=== PATIENT | male | born 1950 | race Caucasian/White ===

== ENCOUNTER 2017-08-25 02:32 | Observation (INO) | payer BC ==
[2017-08-25 02:51] VITALS: RESP 18
[2017-08-25] MEDS ORDERED: SODIUM CHLORIDE 0.9% 1,000 ML IV STA (03:09)
[2017-08-25] MEDS ORDERED: ONDANSETRON 4 MG/2 ML VIAL IVP STA (03:09)
[2017-08-25] MEDS ORDERED: MORPHINE SULFATE 4 MG/ML SYRINGE IV STA (03:10)
[2017-08-25 03:47] LABS: Basophils # (A) 0.1 k/uL (0-0.2); Basophils % (A) 0 %; CH 29.5; CHCM 32.5; Eosinophils # (A) 0.3 k/uL (0-0.7); Eosinophils % (A) 2 %; HCT 41.9 % (39.0-53.0); HDW 2.48; HGB 13.8 gm/dL (13.0-17.5); Luc # (Auto) 0.16; Luc % (Auto) 1; Lymphocytes # (A) 1.1 k/uL (1.0-4.8); Lymphocytes % (A) 6 %; Monocytes # (A) 0.9 k/uL (0-1.0); Monocytes % (A) 5 %; Neutrophils # (A) 15.1 k/uL (1.3-7.7); Neutrophils % (A) 86 %; RBC 4.61 m/uL (4.30-5.90); RDW 12.4 % (11.5-15.5); WBC 17.6 k/uL (3.8-10.6); WBC (Perox) 18.22
--- NOTE | 2017-08-25 03:53 | ED ---
General Adult HPI - General Source: patient, RN notes reviewed Mode of arrival: ambulatory Limitations: no limitations <Juanjose Roldan - Last Filed: 08/25/17 03:54> <Mike Noble - Last Filed: 08/25/17 06:31> - General Chief complaint: Headache Stated complaint: Headache *2 days Time Seen by Provider: 08/25/17 03:01 - History of Present Illness Initial comments: Patient is a 67-year-old male who presents emergency room today with chief complaint of a headache with neck pain. He states the symptoms started 2 days ago he woke up Wednesday morning. Patient admits that he's been trying some pain medication of Tylenol also muscle relaxant with little relief of the symptoms. Patient currently rates pain 06/07. States symptoms do bite him when he was diagnosed with a stroke approximately a year ago was. He states that he did see a neurologist down. Patient denies any other complaints or symptoms. Patient denies any recent fever, chills, shortness of breath, chest pain, back pain, abdominal pain, nausea or vomiting, numbness or tingling, dysuria or hematuria, constipation or diarrhea, headaches or visual changes, or any other complaints. (Juanjose Roldan) - Related Data Home Medications Medication Instructions Recorded Confirmed Aspirin 81 mg PO DAILY 09/27/14 01/02/16 Fenofibrate Nanocrystallized 145 mg PO DAILY 09/27/14 01/02/16 [Tricor] Pantoprazole Sodium [Protonix] 40 mg PO DAILY 09/27/14 01/02/16 Quinapril HCl [Accupril] 10 mg PO DAILY 09/27/14 01/02/16 glipiZIDE [Glucotrol] 10 mg PO TID 09/27/14 01/02/16 metFORMIN HCL 1,000 mg PO BID 09/27/14 01/02/16 Oseltamivir Phosphate [Tamiflu] 30 mg PO BID 01/02/16 01/02/16 Allergies Allergy/AdvReac Type Severity Reaction Status Date / Time Penicillins AdvReac Itching Verified 08/25/17 02:51 lobster AdvReac Itching Uncoded 08/25/17 02:51 Review of Systems ROS Other: All systems not noted in ROS Statement are negative. <Juanjose Roldan - Last Filed: 08/25/17 03:54> ROS Other: All systems not noted in ROS Statement are negative. <Mike Noble - Last Filed: 08/25/17 06:31> ROS Statement: Those systems with pertinent positive or pertinent negative responses have been documented in the HPI. Past Medical History Past Medical History: CVA/TIA, Diabetes Mellitus, GERD/Reflux, Hyperlipidemia, Hypertension Additional Past Medical History / Comment(s): arthritis, frequent urination History of Any Multi-Drug Resistant Organisms: None Reported Past Surgical History: Orthopedic Surgery, Tonsillectomy Additional Past Surgical History / Comment(s): lori shoulder surgeries, left knee arthroscopy, LEFT SHOULDER ARTHOSCOPY Past Anesthesia/Blood Transfusion Reactions: No Reported Reaction Past Psychological History: No Psychological Hx Reported Smoking Status: Never smoker Past Alcohol Use History: Occasional Past Drug Use History: None Reported <Juanjose Roldan - Last Filed: 08/25/17 03:54> General Exam Limitations: no limitations <Juanjose Roldan - Last Filed: 08/25/17 03:54> <Mike Noble - Last Filed: 08/25/17 06:31> - General Exam Comments Initial Comments: General: The patient is awake and alert, in no distress, and does not appear acutely ill. Eye: Pupils are equal, round and reactive to light, extra-ocular movements are intact. No nystagmus. There is normal conjunctiva bilaterally. No signs of icterus. Ears, nose, mouth and throat: There are moist mucous membranes and no oral lesions. Neck: The neck is supple, there is no tenderness or JVD. Cardiovascular: There is a regular rate and rhythm. No murmur, rub or gallop is appreciated. Respiratory: Lungs are clear to auscultation, respirations are non-labored, breath sounds are equal. No wheezes, stridor, rales, or rhonchi. Gastrointestinal: Soft, non-distended, non-tender abdomen without masses or organomegaly noted. There is no rebound or guarding present. No CVA tenderness. Bowel sounds are unremarkable. Musculoskeletal: Normal ROM, no tenderness. Strength 5/5. Sensation intact. Pulses equal bilaterally 2+. Neurological: A&O x 3. CN II-XII intact, There are no obvious motor or sensory deficits. Coordination appears grossly intact. Speech is normal. Normal finger to nose testing. Normal rapid alternating movements. Strength is/5 bilaterally both upper and lower extremities. Normal gait. Negative Romberg's. Skin: Skin is warm and dry and no rashes or lesions are noted. Psychiatric: Cooperative, appropriate mood & affect, normal judgment. (Juanjose Roldan) EKG Findings - EKG Comments: EKG Findings:: EKG performed at 0333: A 12-lead EKG was performed and interpreted by me as showing the following: Rate is 76, and rhythm is normal sinus. There are normal QRS complexes and normal R-wave progression. ST segments have no elevation or depression, and [place] segments appear normal. <Juanjose Roldan - Last Filed: 08/25/17 03:54> Medical Decision Making - Lab Data Result diagrams: 08/25/17 03:26 <Juanjose Roldan - Last Filed: 08/25/17 03:54> - Lab Data Result diagrams: 08/25/17 03:26 08/25/17 03:26 <Mike Noble - Last Filed: 08/25/17 06:31> - Medical Decision Making Patient's CAT scan of the brain shows old infarcts but no acute abnormalities. I went back and reexamined the patient he complained of a 7 out of 10 headache and some neck stiffness. (Mike Noble) - Lab Data Lab Results 08/25/17 08/25/17 08/25/17 Range/Units 03:26 03:26 03:26 WBC 17.6 H (3.8-10.6) k/uL RBC 4.61 (4.30-5.90) m/uL Hgb 13.8 (13.0-17.5) gm/dL Hct 41.9 (39.0-53.0) % MCV 91.0 (80.0-100.0) fL MCH 30.0 (25.0-35.0) pg MCHC 33.0 (31.0-37.0) g/dL RDW 12.4 (11.5-15.5) % Plt Count 280 (150-450) k/uL Neutrophils % 86 % Lymphocytes % 6 % Monocytes % 5 % Eosinophils % 2 % Basophils % 0 % Neutrophils # 15.1 H (1.3-7.7) k/uL Lymphocytes # 1.1 (1.0-4.8) k/uL Monocytes # 0.9 (0-1.0) k/uL Eosinophils # 0.3 (0-0.7) k/uL Basophils # 0.1 (0-0.2) k/uL PT (9.0-12.0) sec INR (<1.2) APTT (22.0-30.0) sec Sodium 138 (137-145) mmol/L Potassium 4.4 (3.5-5.1) mmol/L Chloride 104 (98-107) mmol/L Carbon Dioxide 24 (22-30) mmol/L Anion Gap 10 mmol/L BUN 14 (9-20) mg/dL Creatinine 0.80 (0.66-1.25) mg/dL Est GFR (MDRD) Af Amer >60 (>60 ml/min/1.73 sqM) Est GFR (MDRD) Non-Af >60 (>60 ml/min/1.73 sqM) Glucose 123 H (74-99) mg/dL Calcium 9.6 (8.4-10.2) mg/dL Total Bilirubin 0.8 (0.2-1.3) mg/dL AST 11 L (17-59) U/L ALT 34 (21-72) U/L Alkaline Phosphatase 85 (38-126) U/L Total Creatine Kinase 39 L (55-170) U/L CK-MB (CK-2) 1.3 (0.0-2.4) ng/mL CK-MB (CK-2) Rel Index 3.3 Troponin I <0.012 (0.000-0.034) ng/mL Total Protein 6.5 (6.3-8.2) g/dL Albumin 3.7 (3.5-5.0) g/dL 08/25/17 Range/Units 03:26 WBC (3.8-10.6) k/uL RBC (4.30-5.90) m/uL Hgb (13.0-17.5) gm/dL Hct (39.0-53.0) % MCV (80.0-100.0) fL MCH (25.0-35.0) pg MCHC (31.0-37.0) g/dL RDW (11.5-15.5) % Plt Count (150-450) k/uL Neutrophils % % Lymphocytes % % Monocytes % % Eosinophils % % Basophils % % Neutrophils # (1.3-7.7) k/uL Lymphocytes # (1.0-4.8) k/uL Monocytes # (0-1.0) k/uL Eosinophils # (0-0.7) k/uL Basophils # (0-0.2) k/uL PT 10.3 (9.0-12.0) sec INR 1.0 (<1.2) APTT 25.3 (22.0-30.0) sec Sodium (137-145) mmol/L Potassium (3.5-5.1) mmol/L Chloride (98-107) mmol/L Carbon Dioxide (22-30) mmol/L Anion Gap mmol/L BUN (9-20) mg/dL Creatinine (0.66-1.25) mg/dL Est GFR (MDRD) Af Amer (>60 ml/min/1.73 sqM) Est GFR (MDRD) Non-Af (>60 ml/min/1.73 sqM) Glucose (74-99) mg/dL Calcium (8.4-10.2) mg/dL Total Bilirubin (0.2-1.3) mg/dL AST (17-59) U/L ALT (21-72) U/L Alkaline Phosphatase (38-126) U/L Total Creatine Kinase (55-170) U/L CK-MB (CK-2) (0.0-2.4) ng/mL CK-MB (CK-2) Rel Index Troponin I (0.000-0.034) ng/mL Total Protein (6.3-8.2) g/dL Albumin (3.5-5.0) g/dL Disposition <Juanjose Roldan - Last Filed: 08/25/17 03:54> Time of Disposition: 06:31 <Mike Noble - Last Filed: 08/25/17 06:31> Clinical Impression: Headache Disposition: ADMITTED IP TO THIS HOSP Referrals: Ortiz Quiles DO [Primary Care Provider] - 1-2 days
[2017-08-25 03:56] LABS: Partial Thromboplastin Time 25.3 sec (22.0-30.0); Prothrombin Time 10.3 sec (9.0-12.0)
[2017-08-25 04:02] LABS: ALT 34 U/L (21-72); AST 11 U/L (17-59); Alkaline Phosphatase 85 U/L (38-126); Anion Gap 10 mmol/L; Blood Urea Nitrogen 14 mg/dL (9-20); Calcium 9.6 mg/dL (8.4-10.2); Carbon Dioxide 24 mmol/L (22-30); Chloride 104 mmol/L (98-107); Glucose 123 mg/dL (74-99); Non-African American GFR(MDRD) >60 (>60 ml/min/1.73 sqM); Potassium 4.4 mmol/L (3.5-5.1); Sodium 138 mmol/L (137-145); Total Bilirubin 0.8 mg/dL (0.2-1.3); Total Protein 6.5 g/dL (6.3-8.2)
[2017-08-25 04:09] LABS: Creatine Kinase 39 U/L (55-170)
[2017-08-25 04:22] LABS: Creatine Kinase MB 1.3 ng/mL (0.0-2.4); Troponin I <0.012 ng/mL (0.000-0.034)
--- NOTE | 2017-08-25 04:39 | XR ---
EXAM: XR Chest, 2 Views CLINICAL HISTORY: Reason: altered mental status TECHNIQUE: Frontal and lateral views of the chest. COMPARISON: No relevant prior studies available. FINDINGS: Lungs: No focal infiltrate or evidence of CHF. Pleural space: Unremarkable. No effusion or pneumothorax. Heart: Unremarkable. No cardiomegaly. Mediastinum: Unremarkable. Bones/joints: Degenerative changes without acute osseous abnormality. There is mild widening of both acromioclavicular joints which may be on an arthritic, metabolic or posttraumatic basis. Smoothly marginated contour deformity of several anterior left mid and lower ribs suggests old healed fracture deformities. IMPRESSION: 1. No acute process is seen within the chest. 2. Chronic appearing osseous findings, as above.
--- NOTE | 2017-08-25 04:50 | CT ---
EXAM: CT Head Without Intravenous Contrast CLINICAL HISTORY: Reason: headache, altered mental status TECHNIQUE: Axial computed tomography images of the head/brain without intravenous contrast. CTDI is 57.40 mGy and DLP is 1064.30 mGy-cm. This CT exam was performed using one or more of the following dose reduction techniques: automated exposure control, adjustment of the mA and/or kV according to patient size, and/or use of iterative reconstruction technique. COMPARISON: No relevant prior studies available. FINDINGS: Brain: Broad region of encephalomalacia consistent with remote left cerebellar infarct, along with prominent chronic lacunar infarct involving the right basal ganglia, internal capsule and caudate, and smaller chronic left basal ganglia lacunar infarct. Additional confluent hypodensity in the right frontal lobe, extending from the centrum semiovale ovale to the subcortical level, suggestive of postinfarct sequela which is more likely chronic than subacute given slight ex vacuo dilatation of the right lateral ventricle as seen on the coronal reformats. There is a background of mild atrophy and diffuse periventricular white matter hypodensity most likely on a chronic small vessel ischemic basis. There is no acute bleed, midline shift or mass effect. Ventricles: No hydrocephalus. Bones/joints: No acute fracture. Soft tissues: Unremarkable. Vasculature: Intracranial atherosclerosis. Sinuses: Minor paranasal sinus mucosal thickening without air-fluid level. Mastoid air cells: Unremarkable. No mastoid effusion. IMPRESSION: 1. Sequela from multiple sites of nonacute infarct, most if not all of which are clearly chronic, as discussed above. 2. No identifiable acute or recent territorial infarct, which may initially be inapparent by CT and for which MRI is considered more sensitive, nor specific etiology of the patient's headaches detected. 3. No priors.
[2017-08-25] MEDS ORDERED: DIAZEPAM 5 MG/ML 2 ML INJ IVP STA (05:16)
[2017-08-25] MEDS ORDERED: SODIUM CHLORIDE 0.9% 1,000 ML IV ONE (06:31)
[2017-08-25] MEDS ORDERED: HYDROmorphone 1 MG/ML 1 ML SYRINGE IVP STA (11:19)
[2017-08-25] MEDS ORDERED: ONDANSETRON 4 MG/2 ML VIAL IVP PRN (11:19)
[2017-08-25 12:12] LABS: Glucose,Whole Blood 205 mg/dL (75-99)
[2017-08-25] MEDS: traMADol 50 MG TAB PO SCH ×3 (14:44→21:51)
[2017-08-25 17:06] LABS: Glucose,Whole Blood 200 mg/dL (75-99)
[2017-08-25] MEDS: amLODIPine 5 MG TAB PO SCH (18:15)
[2017-08-25] MEDS: PANTOPRAZOLE 40 MG TABLET PO SCH (18:17)
[2017-08-25] MEDS: INSULIN LISPRO (humaLOG) 300 UNIT/3 ML VIAL SQ SCH ×2 (18:17→21:49)
[2017-08-25] MEDS: LISINOPRIL 10 MG TAB PO SCH (18:17)
[2017-08-25] MEDS: ASPIRIN 81 MG PO SCH (18:17)
[2017-08-25] MEDS ORDERED: CYCLOBENZAPRINE 5 MG TAB PO PRN (20:09)
[2017-08-25] MEDS ORDERED: DIAZEPAM 2 MG TAB PO STA (20:09)
--- NOTE | 2017-08-25 20:13 | P.HPIM ---
History of Present Illness H&P Date: 08/25/17 Chief Complaint: Neck pain, headache This is a 67-year-old gentleman patient of Dr. Quiles. 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 Patient had taken some Tylenol [id number] with a muscle relaxant with no relief of symptoms. Patient's pain is aggravated by neck movement, it's also admitted by driving, no diplopia no nausea, no fever no chills, no delirium, no motor deficits or sensory deficits in upper or lower extremities. Pain is rated at 7 out of 10, no similar symptoms in the past related to this. He had headaches in the past for which it has resolved and headache was thought to be related to his CVA, In the emergency room he was evaluated to include an MRI of the brain which shows the left inferior cerebellar infarct, computed tomography scan of the brain shows old infarcts without any acute abnormalities, leukocytosis noted 17.6 WBC with 15.1 neutrophils no urinalysis was performed creatinine 0.80 INR, normal liver function test him a no LP performed Review of Systems Constitutional: Reports as per HPI, Denies anorexia, Denies chills, Denies chronic headaches, Denies chronic pain, Denies daytime sleepiness, Denies fatigue, Denies fever, Denies lethargy, Denies malaise, Denies night sweats, Denies poor appetite, Denies sweats, Denies weakness, Denies weight gain, Denies weight loss Ears, nose, mouth and throat: Reports as per HPI, Reports ant. neck pain, Reports headache, Reports neck fullness/pressure, Denies bleeding gums, Denies dental pain, Denies dysphagia, Denies epistaxis, Denies hoarseness, Denies mouth pain, Denies nasal congestion, Denies nasal discharge, Denies neck lump, Denies nose pain, Denies odynophagia, Denies post-nasal drip, Denies sinus pain , Denies sinus pressure, Denies swelling in mouth, Denies swelling in throat, Denies sore throat, Denies vertigo, Denies voice changes Cardiovascular: Reports as per HPI, Denies chest pain, Denies claudication, Denies decreased exercise tolerance, Denies dyspnea on exertion, Denies edema, Denies high blood pressure, Denies irregular heart beat, Denies leg edema, Denies lightheadedness, Denies orthopnea, Denies palpitations, Denies paroxysmal nocturnal dyspnea, Denies phlebitis, Denies rapid heart beat, Denies shortness of breath, Denies syncope Respiratory: Reports as per HPI, Denies congestion, Denies cough, Denies cough with sputum, Denies dyspnea, Denies excessive sputum, Denies hemoptysis, Denies home oxygen, Denies pain, Denies pain on inspiration, Denies pleurisy, Denies respiratory infections, Denies sleep apnea, Denies snoring, Denies wheezing Gastrointestinal: Reports as per HPI Genitourinary: Reports as per HPI, Denies decreased libido, Denies difficulties fathering child, Denies discharge, Denies dysuria, Denies erectile dysfunction, Denies flank pain, Denies genital pain, Denies genital sores, Denies hematuria, Denies impotence, Denies incontinence, Denies kidney stones, Denies nocturia, Denies polyuria, Denies testicular lump, Denies testicular pain, Denies urinary frequency, Denies urinary hesitancy, Denies urinary retention Musculoskeletal: Reports as per HPI, Denies arm numbness/tingling, Denies atrophy, Denies fractures, Denies frequent falls, Denies gait dysfunction, Denies hot joints, Denies leg numbness/tingling, Denies limitation of motion, Denies loss of height, Denies low back pain, Denies morning stiffness, Denies muscle cramps, Denies muscle weakness, Denies myalgias, Denies neck pain, Denies neck stiffness, Denies prior amputations, Denies redness of joints, Denies shooting arm pain, Denies shooting leg pain Integumentary: Reports as per HPI, Denies acne, Denies boils, Denies brittle nails, Denies change in hair/nails, Denies color changes, Denies darkening of skin, Denies depigmentation, Denies dryness, Denies foot/leg ulcers, Denies growths, Denies hirsutism, Denies lesions, Denies onychomycosis, Denies pruritus , Denies rash, Denies sores, Denies striae, Denies unusual bruising, Denies wounds Neurological: Reports as per HPI, Denies aphasia, Denies ataxia, Denies balance difficulties, Denies burning pain, Denies change in mentation, Denies change in smell/taste, Denies change in speech, Denies confusion, Denies convulsions, Denies double vision, Denies gait dysfunction, Denies head injury, Denies headaches, Denies hearing difficulties, Denies lack of coordination, Denies loss of vision, Denies memory loss, Denies migraines, Denies motor disturbance, Denies numbness, Denies paralysis, Denies paresthesias, Denies seizures, Denies sensory deficit, Denies spasticity, Denies syncope, Denies tic, Denies tingling , Denies transient paralysis, Denies tremors, Denies vertigo, Denies weakness, Denies visual changes Psychiatric: Reports as per HPI, Denies anhedonia, Denies anxiety, Denies anxiety attacks, Denies change in appetite, Denies change in libido, Denies change in sleep habits, Denies confusion, Denies depression, Denies difficulty concentrating, Denies disorientation, Denies hallucinations, Denies hopelessness , Denies hypersomnia, Denies insomnia, Denies irritability, Denies memory loss, Denies mood swings, Denies paranoia, Denies sadness/tearfulness, Denies sleep disturbances, Denies suicidal ideation Endocrine: Reports as per HPI, Denies cold intolerance, Denies deepening of the voice, Denies excessive sweating, Denies excessive thirst, Denies fatigue, Denies flushing, Denies heat intolerance, Denies high blood sugars, Denies increase in ring/shoe/hat size, Denies low blood sugars, Denies nocturia, Denies palpitations, Denies polydipsia, Denies polyphagia, Denies polyuria, Denies proptosis, Denies recent glucocorticoid use, Denies thyroid mass, Denies weight change Hematologic/Lymphatic: Reports as per HPI, Denies easy bleeding, Denies easy bruising, Denies lymphadenopathy, Denies lymphedema, Denies thrombophilia Allergic/Immunologic: Reports as per HPI, Denies allergic rhinitis, Denies anaphylaxis, Denies angioedema, Denies gluten intolerance, Denies persistent infections, Denies seasonal allergies, Denies urticaria, Denies wheezing Past Medical History Past Medical History: CVA/TIA, Diabetes Mellitus, GERD/Reflux, Hyperlipidemia, Hypertension, Osteoarthritis (OA) Additional Past Medical History / Comment(s): CVA almost 2 yrs ago with no residual, post CVA pt had daily mild headaches/neck stiffness but eventually became less frequent, NIDDM type II, arthritis especially in bilateral hands, starting of cataracts, frequent urination. History of Any Multi-Drug Resistant Organisms: None Reported Past Surgical History: Orthopedic Surgery, Tonsillectomy Additional Past Surgical History / Comment(s): lori shoulder rotator cuff surgeries with L side done twice, left knee arthroscopy, colonoscopy-normal. Past Anesthesia/Blood Transfusion Reactions: No Reported Reaction Smoking Status: Former smoker - Past Family History Mother Family Medical History: Neurologic Disorder (Brain tumor) Additional Family Medical History / Comment(s): Mother was healthy. She at the age of 84 yrs. Father Family Medical History: CVA/TIA Additional Family Medical History / Comment(s): Father is 89yrs old. Brother(s) Family Medical History: CVA/TIA Sister(s) Family Medical History: Osteoarthritis (OA) Son(s) Family Medical History: No Reported History Medications and Allergies Home Medications Medication Instructions Recorded Confirmed Type Aspirin 81 mg PO PC-SUPPER 09/27/14 08/25/17 History Pantoprazole Sodium [Protonix] 40 mg PO PC-SUPPER 09/27/14 08/25/17 History Quinapril HCl [Accupril] 10 mg PO PC-SUPPER 09/27/14 08/25/17 History glipiZIDE [Glucotrol] 10 mg PO TID 09/27/14 08/25/17 History metFORMIN HCL 1,000 mg PO BID 09/27/14 08/25/17 History Atorvastatin Calcium [Lipitor] 40 mg PO HS 08/25/17 08/25/17 History amLODIPine [Norvasc] 5 mg PO DAILY 08/25/17 08/25/17 History sitaGLIPtin [Januvia] 100 mg PO DAILY 08/25/17 08/25/17 History Allergies Allergy/AdvReac Type Severity Reaction Status Date / Time Penicillins AdvReac Itching Verified 08/25/17 06:52 shellfish derived [Shellfish] AdvReac Itching Verified 08/25/17 06:52 Physical Exam Vitals: Vital Signs Temp Pulse Pulse Resp BP BP Pulse Ox 08/25/17 19:38 99.9 F H 89 18 145/64 98 08/25/17 16:00 86 18 08/25/17 15:35 98.8 F 86 18 154/74 94 L 08/25/17 12:00 98.2 F 86 18 157/71 94 L 08/25/17 10:54 98.2 F 73 18 163/84 08/25/17 08:06 98.2 F 73 18 163/84 100 08/25/17 06:51 98.2 F 78 18 155/77 99 08/25/17 05:29 76 18 134/63 96 08/25/17 05:15 79 18 134/63 94 L 08/25/17 04:17 77 18 150/67 99 08/25/17 02:49 98 F 84 18 162/73 98 Intake and Output 08/25/17 08/25/17 08/25/17 06:59 14:59 22:59 Intake Total 240 600 720 Balance 240 600 720 Intake: Oral 240 600 720 Other: Voiding Method Toilet Toilet # Voids 1 1 2 Weight 77.111 kg 77.111 kg Patient Weight 08/26/17 06:59 Weight 77.111 kg - Constitutional General appearance: average body habitus, cooperative, no acute distress - EENT Eyes: anicteric sclerae, PERRLA, normal appearance ENT: no hard of hearing, no hearing grossly normal, NA/AT, normal oropharynx, no other, no pharyngeal erythema, no thrush, no tonsillar exudates, no tonsillar swelling - Neck Neck: no lymphadenopathy, normal ROM, no other, no rigidity, no stridor, no thyromegaly Thyroid: bilateral: normal size - Respiratory Respiratory: bilateral: CTA, negative: diminished, dullness, rales, wheezing - Cardiovascular Rhythm: regular Heart sounds: normal: S1, S2 Abnormal Heart Sounds: no systolic murmur, no diastolic murmur, no rub, no S3 Gallop, no S4 Gallop, no click, no other - Gastrointestinal General gastrointestinal: normal bowel sounds, soft - Integumentary Integumentary: decreased turgor, normal - Neurologic Neurologic: CNII-XII intact (Negative for Kernig's or Brudzinski's sign, neck is supple, occipital tenderness noted bilaterally) - Musculoskeletal Musculoskeletal: gait normal, strength equal bilaterally - Psychiatric Psychiatric: A&O x's 3, intact judgment & insight Results CBC & Chem 7: 08/25/17 03:26 08/25/17 03:26 Labs: Abnormal Lab Results - Last 24 Hours (Table) 08/25/17 08/25/17 08/25/17 Range/Units 03:26 03:26 03:26 WBC 17.6 H (3.8-10.6) k/uL Neutrophils # 15.1 H (1.3-7.7) k/uL Glucose 123 H (74-99) mg/dL POC Glucose (mg/dL) (75-99) mg/dL AST 11 L (17-59) U/L Total Creatine Kinase 39 L (55-170) U/L 08/25/17 08/25/17 Range/Units 12:05 16:58 WBC (3.8-10.6) k/uL Neutrophils # (1.3-7.7) k/uL Glucose (74-99) mg/dL POC Glucose (mg/dL) 205 H 200 H (75-99) mg/dL AST (17-59) U/L Total Creatine Kinase (55-170) U/L Laboratory Results WBC 17.6 k/uL (3.8-10.6) H 08/25/17 03:26 RBC 4.61 m/uL (4.30-5.90) 08/25/17 03:26 Hgb 13.8 gm/dL (13.0-17.5) 08/25/17 03:26 Hct 41.9 % (39.0-53.0) 08/25/17 03:26 MCV 91.0 fL (80.0-100.0) 08/25/17 03:26 MCH 30.0 pg (25.0-35.0) 08/25/17 03:26 MCHC 33.0 g/dL (31.0-37.0) 08/25/17 03:26 RDW 12.4 % (11.5-15.5) 08/25/17 03:26 Plt Count 280 k/uL (150-450) 08/25/17 03:26 Neutrophils % 86 % 08/25/17 03:26 Lymphocytes % 6 % 08/25/17 03:26 Monocytes % 5 % 08/25/17 03:26 Eosinophils % 2 % 08/25/17 03:26 Basophils % 0 % 08/25/17 03:26 Neutrophils # 15.1 k/uL (1.3-7.7) H 08/25/17 03:26 Lymphocytes # 1.1 k/uL (1.0-4.8) 08/25/17 03:26 Monocytes # 0.9 k/uL (0-1.0) 08/25/17 03:26 Eosinophils # 0.3 k/uL (0-0.7) 08/25/17 03:26 Basophils # 0.1 k/uL (0-0.2) 08/25/17 03:26 PT 10.3 sec (9.0-12.0) 08/25/17 03:26 INR 1.0 (<1.2) 08/25/17 03:26 APTT 25.3 sec (22.0-30.0) 08/25/17 03:26 Sodium 138 mmol/L (137-145) 08/25/17 03:26 Potassium 4.4 mmol/L (3.5-5.1) 08/25/17 03:26 Chloride 104 mmol/L (98-107) 08/25/17 03:26 Carbon Dioxide 24 mmol/L (22-30) 08/25/17 03:26 Anion Gap 10 mmol/L 08/25/17 03:26 BUN 14 mg/dL (9-20) 08/25/17 03:26 Creatinine 0.80 mg/dL (0.66-1.25) 08/25/17 03:26 Est GFR (MDRD) Af Amer >60 (>60 ml/min/1.73 sqM) 08/25/17 03:26 Est GFR (MDRD) Non-Af >60 (>60 ml/min/1.73 sqM) 08/25/17 03:26 Glucose 123 mg/dL (74-99) H 08/25/17 03:26 POC Glucose (mg/dL) 200 mg/dL (75-99) H 08/25/17 16:58 POC Glu Cattle Manager ID Tori Harris 08/25/17 16:58 Calcium 9.6 mg/dL (8.4-10.2) 08/25/17 03:26 Total Bilirubin 0.8 mg/dL (0.2-1.3) 08/25/17 03:26 AST 11 U/L (17-59) L 08/25/17 03:26 ALT 34 U/L (21-72) 08/25/17 03:26 Alkaline Phosphatase 85 U/L (38-126) 08/25/17 03:26 Total Creatine Kinase 39 U/L (55-170) L 08/25/17 03:26 CK-MB (CK-2) 1.3 ng/mL (0.0-2.4) 08/25/17 03:26 CK-MB (CK-2) Rel Index 3.3 08/25/17 03:26 Troponin I <0.012 ng/mL (0.000-0.034) 08/25/17 03:26 Total Protein 6.5 g/dL (6.3-8.2) 08/25/17 03:26 Albumin 3.7 g/dL (3.5-5.0) 08/25/17 03:26 Thrombosis Risk Factor Assmnt - DVT/VTE Prophylaxis DVT/VTE Prophylaxis: Mechanical Prophylaxis ordered, Low risk, early ambulation encouraged - Choose All That Apply Any of the Below Risk Factors Present?: Yes Each Factor Represents 1 point: Obesity (BMI >25) Other Risk Factors: Yes Each Risk Factor Represents 2 Points: Age 61-74 years Other congenital or acquired thrombophilia - If yes, enter type in comment: No Thrombosis Risk Factor Assessment Total Risk Factor Score: 3 Thrombosis Risk Factor Assessment Level: Moderate Risk Assessment and Plan Plan: 1. Lower extremity but the headache with neck pain, highly suspicious off occipital neuralgia of rather than meningitis, patient's evaluation would include neurology consultation, patient might need occipital nerve block bilaterally, muscle relaxants would be given, Toradol 30 mg IV every 6 hours, Flexeril 5 mg 3 times a day, Valium 2 mg one time dose tonight. Dr. Calles is on consult, discussed the case with him, there is a small likelihood that an LP would be needed down the line secondary to leukocytosis however this is less likely, however should it be performed, viral cultures including HSV PCR, arbovirus, would need need to be sent along with bacterial cultures. Patient denies any history of recurrent meningitis the past 2. Leukocytosis, etiology is undetermined at this time, urinalysis will be obtained, 3. Diabetes mellitus type 2 on Januvia which we continued, metformin which is currently on hold secondary to contrast studies continue Glucotrol 4. 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 Hypertension currently on amlodipine 5 mg daily and Accupril 10 mg DO NOT RESUSCITATE no changes made 6. GI prophylaxis maintenance Protonix at home, next DVT prophylaxis on early ambulation and KLAUDIA hose Expected length of stay 24-48 hours, he currently is under observation status
[2017-08-25 20:51] LABS: Glucose,Whole Blood 228 mg/dL (75-99)
[2017-08-25 20:54] LABS: Hemoglobin A1C 8.3 % (4.2-6.1)
[2017-08-25] MEDS: methylPREDNISolone SOD SUCCI 125 MG/2 ML VIAL IVP SCH ×2 (21:48→23:47)
[2017-08-25] MEDS: ATORVASTATIN 40 MG TAB PO SCH (21:48)
[2017-08-25] MEDS: KETOROLAC 30 MG/ML 1 ML VIAL IVP SCH (21:49)
--- NOTE | 2017-08-25 21:59 | CONS ---
CONSULTATION DATE OF CONSULTATION: 08/25/2017. CHIEF COMPLAINT: Headache. HISTORY OF PRESENT ILLNESS: Mr. Morales is a pleasant 67-year-old male, who is being evaluated by the Neurology Service per the request of Dr. Higgins for a headache. The patient states that he started having a headache approximately 4 days ago. The headache was mostly in the occipital region bilaterally and he described it as a throbbing pain. Two days ago, he started having upper neck stiffness and discomfort. He denies having any fevers and denies any recent head injuries. He was brought into [facility] Emergency Room for further workup and management. A CT scan of the brain was done, which showed no acute intracranial abnormalities. There was evidence of multiple old lacunar infarcts. The patient states that he did suffer a stroke a few years ago and does take aspirin 81 mg daily at home. He denies any lateralizing numbness or weakness. He rates his headache as 6 out of 10 in intensity at the time of my evaluation. He denies any dizziness or visual changes. He denies any recent travels. His CBC on admission showed leukocytosis at 17.6, and his comprehensive metabolic profile and cardiac enzymes were negative. He has not had any fevers since his admission and denies having any fevers at home. PAST MEDICAL HISTORY: Stroke, diabetes, gastroesophageal reflux disease, dyslipidemia, hypertension, arthritis, history of tonsillectomy and orthopedic surgery involving the knees and the shoulders. SOCIAL HISTORY: He denies any tobacco or drug use. He occasionally drinks alcohol. FAMILY HISTORY: Noncontributory. HOME MEDICATIONS: Reviewed in the chart. ALLERGIES: PENICILLIN AND SHELLFISH. REVIEW OF SYSTEMS: CONSTITUTIONAL: Negative. EYES: Negative. ENT: Negative. CARDIOVASCULAR: Negative. RESPIRATORY: Negative. NEUROLOGICAL: As mentioned above. GASTROINTESTINAL: As mentioned above with history of occasional heartburn. GENITOURINARY: Positive for frequent urination. PSYCHIATRIC: Negative. ENDOCRINE: Positive for diabetes. DERMATOLOGICAL: Negative. PHYSICAL EXAM: Vital signs show a temperature of 98.8, pulse 86, respirations 18, blood pressure 154/74. GENERAL APPEARANCE: The patient is a well-developed, elderly male, who appears to be in no acute distress. HEENT: Normocephalic, atraumatic. No facial asymmetry is seen. Tenderness to palpation is felt along bilateral greater occipital nerve regions. NECK: Supple with no masses felt. Tenderness to palpation is felt along the upper cervical spine. CARDIOVASCULAR: Regular rate and rhythm. ABDOMEN: Nontender, nondistended. Extremities showed no edema or clubbing. NEUROLOGICAL: The patient is alert, aware and oriented x3. Speech and language are normal. Strength is full in all 4 extremities. Sensory exam was normal to light touch in all 4 extremities. No pronator drift is seen. Gait is normal. No tremors or seizure-like activity is seen. No facial asymmetry is noticed on cranial nerve testing. IMPRESSION: 1. Intractable headache. 2. Cervicalgia. 3. Bilateral occipital neuritis. 4. Leukocytosis. RECOMMENDATION: The patient continues to have bilateral occipital head pain and upper neck pain and this is consistent with occipital neuritis. His neck is pretty supple and I doubt any intracranial infection causing his headache or his leukocytosis. He has not had any fevers. I will try him on IV Solu-Medrol 125 mg every 8 hours. The patient will likely need greater occipital nerve blocks which can be done in the outpatient setting. I reviewed his CT scans of the brain which showed no acute findings. He is already on aspirin for his history of ischemic strokes. I do recommend repeating a CBC, preferably prior to the initiation of Solu-Medrol, as this can cause secondary leukocytosis. Continue the rest of your current workup and management. I will continue to follow with you. Further recommendations to follow. Thank you for allowing me to participate in the care of your patient. If you have any questions, please feel free to contact me. MAYELA / SAHRAN: [phone] /
[2017-08-26 03:45] LABS: Glucose,Whole Blood 213 mg/dL (75-99)
[2017-08-26] MEDS: KETOROLAC 30 MG/ML 1 ML VIAL IVP SCH ×4 (03:55→17:32)
[2017-08-26 06:59] LABS: Glucose,Whole Blood 272 mg/dL (75-99)
[2017-08-26 08:03] LABS: Basophils % (A) 0 %; CH 29.3; CHCM 31.6; Eosinophils % (A) 0 %; HCT 40.7 % (39.0-53.0); HDW 2.47; HGB 12.9 gm/dL (13.0-17.5); Luc # (Auto) 0.04; Luc % (Auto) 0; Lymphocytes # (A) 0.5 k/uL (1.0-4.8); Lymphocytes % (A) 3 %; MCH 29.6 pg (25.0-35.0); MCHC 31.8 g/dL (31.0-37.0); Mean Platelet Volume 8.5; Monocytes # (A) 0.2 k/uL (0-1.0); Monocytes % (A) 1 %; Neutrophils # (A) 17.6 k/uL (1.3-7.7); Neutrophils % (A) 95 %; RBC 4.38 m/uL (4.30-5.90); RDW 12.2 % (11.5-15.5); WBC 18.4 k/uL (3.8-10.6); WBC (Perox) 19.01
[2017-08-26] MEDS: methylPREDNISolone SOD SUCCI 125 MG/2 ML VIAL IVP SCH ×2 (08:06→17:28)
[2017-08-26] MEDS: traMADol 50 MG TAB PO SCH ×3 (08:07→22:18)
[2017-08-26] MEDS: INSULIN LISPRO (humaLOG) 300 UNIT/3 ML VIAL SQ SCH ×4 (08:11→20:21)
[2017-08-26 08:34] LABS: ALT 32 U/L (21-72); AST 16 U/L (17-59); Alkaline Phosphatase 87 U/L (38-126); Anion Gap 10 mmol/L; Blood Urea Nitrogen 24 mg/dL (9-20); Calcium 9.2 mg/dL (8.4-10.2); Carbon Dioxide 24 mmol/L (22-30); Chloride 103 mmol/L (98-107); Glucose 275 mg/dL (74-99); Non-African American GFR(MDRD) >60 (>60 ml/min/1.73 sqM); Potassium 5.1 mmol/L (3.5-5.1); Sodium 137 mmol/L (137-145); Total Bilirubin 0.4 mg/dL (0.2-1.3); Total Protein 6.1 g/dL (6.3-8.2)
[2017-08-26] MEDS: amLODIPine 5 MG TAB PO SCH (10:03)
[2017-08-26 11:57] LABS: Glucose,Whole Blood 320 mg/dL (75-99)
[2017-08-26 15:48] LABS: Appearance,Urine Clear (Clear); Bilirubin,Urine Negative (Negative); Glucose,Urine (UA) 4+ (Negative); Ketones,Urine Negative (Negative); Leukocyte Esterase,Urine Negative (Negative); Nitrite,Urine Negative (Negative); Protein,Urine Negative (Negative); Specific Gravity,Urine 1.029 (1.001-1.035); UA Billing (MACRO vs. MICRO) CHEM; Urobilinogen,Urine <2.0 mg/dL (<2.0)
[2017-08-26 17:03] LABS: Glucose,Whole Blood 347 mg/dL (75-99)
[2017-08-26] MEDS: glipiZIDE 10 MG TAB PO SCH (17:28)
[2017-08-26] MEDS: metFORMIN 500 MG TAB PO SCH (17:28)
--- NOTE | 2017-08-26 17:58 | P.PN ---
Subjective Principal diagnosis: Patient is a pleasant 67-year-old male who is being followed by the neurology service for headache. Patient states these been having a headache over the last few days. Patient states headache is mostly in the occipital region. Few days prior to admission he started having stiffness of his neck. He denies any fevers or recent head injuries. Computed tomography scan of the brain was done which showed no acute intracranial abnormality. There was evidence of old multiple lacunar infarcts. Patient does take 81 mg aspirin at home daily. Patient had no lateralizing numbness or weakness. Patient's neck was supple. Patient's been afebrile since admission. At the time of my evaluation, patient is resting comfortably in bed and appears to be in no acute distress. Objective - Vital Signs Vital signs: Vital Signs Temp 97.5 F L 08/26/17 15:46 Pulse 67 08/26/17 15:46 Resp 18 08/26/17 16:00 BP 155/72 08/26/17 15:46 Pulse Ox 97 08/26/17 15:46 Intake & Output 08/25/17 08/26/17 08/26/17 18:59 06:59 18:59 Intake Total 266 136 1313 Balance 884 944 7945 Weight 77.111 kg Intake: IV 140 0.9@20 140 Oral 073 [id number] [id number] Other: Voiding Method Toilet Toilet Toilet # Voids 2 2 - Exam PHYSICAL EXAM: GENERAL APPEARANCE: Patient is a well-developed, male who appears to be in no acute distress. HEENT: Normocephalic, atraumatic, no facial asymmetry is seen. Neck is supple with no masses felt. CARDIOVASCULAR: Regular rate and rhythm. ABDOMEN: Nontender, nondistended. EXTREMITIES: Show no edema or clubbing. NEUROLOGICAL EXAM: Patient is awake, alert, and oriented 3. Speech and language are normal. Strength is full in all 4 extremities. Sensory exam to light touch is normal in all 4 extremities. No facial asymmetry is seen on cranial nerve testing. No tremors or seizure-like activity is noted. - Labs CBC & Chem 7: 08/26/17 06:48 08/26/17 06:48 Labs: Abnormal Lab Results - Last 24 Hours (Table) 08/25/17 08/25/17 08/26/17 Range/Units 03:30 20:48 03:42 WBC (3.8-10.6) k/uL Hgb (13.0-17.5) gm/dL Neutrophils # (1.3-7.7) k/uL Lymphocytes # (1.0-4.8) k/uL BUN (9-20) mg/dL Glucose (74-99) mg/dL POC Glucose (mg/dL) 228 H 213 H (75-99) mg/dL Hemoglobin A1c 8.3 H (4.2-6.1) % AST (17-59) U/L Total Protein (6.3-8.2) g/dL Albumin (3.5-5.0) g/dL Urine Glucose (UA) (Negative) 08/26/17 08/26/17 08/26/17 Range/Units 06:48 06:48 06:56 WBC 18.4 H (3.8-10.6) k/uL Hgb 12.9 L (13.0-17.5) gm/dL Neutrophils # 17.6 H (1.3-7.7) k/uL Lymphocytes # 0.5 L (1.0-4.8) k/uL BUN 24 H (9-20) mg/dL Glucose 275 H (74-99) mg/dL POC Glucose (mg/dL) 272 H (75-99) mg/dL Hemoglobin A1c (4.2-6.1) % AST 16 L (17-59) U/L Total Protein 6.1 L (6.3-8.2) g/dL Albumin 3.3 L (3.5-5.0) g/dL Urine Glucose (UA) (Negative) 08/26/17 08/26/17 08/26/17 Range/Units 11:54 14:25 16:59 WBC (3.8-10.6) k/uL Hgb (13.0-17.5) gm/dL Neutrophils # (1.3-7.7) k/uL Lymphocytes # (1.0-4.8) k/uL BUN (9-20) mg/dL Glucose (74-99) mg/dL POC Glucose (mg/dL) 320 H 347 H (75-99) mg/dL Hemoglobin A1c (4.2-6.1) % AST (17-59) U/L Total Protein (6.3-8.2) g/dL Albumin (3.5-5.0) g/dL Urine Glucose (UA) 4+ H (Negative) Assessment and Plan Plan: Impression: 1. Intractable headache 2. Cervicalgia 3. Bilateral occipital neuritis 4. Leukocytosis Recommendation: It does appear patient has significant occipital neuritis on exam. He states his neck pain is slowly resolving. His neck remains supple. I don't any intracranial infection causing his headache or leukocytosis. He remains afebrile. Patient has been receiving IV Solu-Medrol every 8 hours which seems to be helping. After discharge, patient may need greater occipital nerve blocks which can be done in the office setting. As you recall computed tomography scan of the brain showed no acute findings. Patient is already on antiplatelet therapy for history of ischemic stroke. Patient is stable from a neurological standpoint for discharge. Continue current medical management. I will continue to follow with you. Further recommendations to follow. I performed an examination of the patient and discussed the management with the TRACK REPAIR SUPERVISOR. I have reviewed the TRACK REPAIR SUPERVISOR notes and agree with the findings and plan of care.
[2017-08-26] MEDS: ASPIRIN 81 MG PO SCH (18:42)
[2017-08-26] MEDS: PANTOPRAZOLE 40 MG TABLET PO SCH (18:42)
[2017-08-26] MEDS: LISINOPRIL 10 MG TAB PO SCH (18:43)
[2017-08-26] MEDS: ATORVASTATIN 40 MG TAB PO SCH (19:47)
[2017-08-26 20:00] LABS: Glucose,Whole Blood 291 mg/dL (75-99)
[2017-08-27] MEDS: methylPREDNISolone SOD SUCCI 125 MG/2 ML VIAL IVP SCH ×2 (00:08→08:07)
[2017-08-27] MEDS: traMADol 50 MG TAB PO SCH ×3 (00:11→12:39)
[2017-08-27] MEDS: KETOROLAC 30 MG/ML 1 ML VIAL IVP SCH ×3 (00:11→12:36)
[2017-08-27 06:57] LABS: Glucose,Whole Blood 317 mg/dL (75-99)
[2017-08-27 07:43] VITALS: BP 141/69; PULSE 75; TEMP 97.6
[2017-08-27] MEDS: metFORMIN 500 MG TAB PO SCH (08:05)
[2017-08-27] MEDS: glipiZIDE 10 MG TAB PO SCH ×2 (08:05→12:37)
[2017-08-27] MEDS: amLODIPine 5 MG TAB PO SCH (08:06)
[2017-08-27] MEDS: INSULIN LISPRO (humaLOG) 300 UNIT/3 ML VIAL SQ SCH ×2 (08:08→12:34)
[2017-08-27] MEDS ORDERED: LINAGLIPTIN 5 MG TABLET PO SCH (09:00)
[2017-08-27 11:54] LABS: Glucose,Whole Blood 373 mg/dL (75-99)
[2017-08-27] MEDS ORDERED: INSULIN LISPRO (humaLOG) 300 UNIT/3 ML VIAL SQ ONE (13:05)
--- NOTE | 2017-08-30 15:09 | P.PN ---
Subjective This is a 67-year-old gentleman patient of Dr. Quiles. 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 Patient had taken some Tylenol [id number] with a muscle relaxant with no relief of symptoms. Patient's pain is aggravated by neck movement, it's also admitted by driving, no diplopia no nausea, no fever no chills, no delirium, no motor deficits or sensory deficits in upper or lower extremities. Pain is rated at 7 out of 10, no similar symptoms in the past related to this. He had headaches in the past for which it has resolved and headache was thought to be related to his CVA, In the emergency room he was evaluated to include an MRI of the brain which shows the left inferior cerebellar infarct, computed tomography scan of the brain shows old infarcts without any acute abnormalities, leukocytosis noted 17.6 WBC with 15.1 neutrophils no urinalysis was performed creatinine 0.80 INR, normal liver function test him a no LP performed 08/26: Patient has been started on high dose Solu-Medrol and his diabetic medications were initially on hold which will be resumed and patient also started on sliding insulin scale. Patient has been seen by Dr. Calles for occipital neuritis. We will plan to monitor the patient overnight and probable discharge tomorrow. Objective - Vital Signs Vital signs: Vital Signs Temp 97.5 F L 08/26/17 08:00 Pulse 75 08/26/17 08:00 Resp 18 08/26/17 08:00 BP 123/67 08/26/17 08:00 Pulse Ox 96 08/26/17 08:00 Intake & Output 08/25/17 08/26/17 08/26/17 18:59 06:59 18:59 Intake Total 988 630 9346 Balance 690 839 8305 Weight 77.111 kg Intake: IV 140 0.9@20 140 Oral [phone] Other: Voiding Method Toilet Toilet Toilet # Voids 2 2 - Exam General appearance: average body habitus, cooperative, no acute distress - EENT Eyes: anicteric sclerae, PERRLA, normal appearance ENT: no hard of hearing, no hearing grossly normal, NA/AT, normal oropharynx, no other, no pharyngeal erythema, no thrush, no tonsillar exudates, no tonsillar swelling - Neck Neck: no lymphadenopathy, normal ROM, no other, no rigidity, no stridor, no thyromegaly Thyroid: bilateral: normal size - Respiratory Respiratory: bilateral: CTA, negative: diminished, dullness, rales, wheezing - Cardiovascular Rhythm: regular Heart sounds: normal: S1, S2 Abnormal Heart Sounds: no systolic murmur, no diastolic murmur, no rub, no S3 Gallop, no S4 Gallop, no click, no other - Gastrointestinal General gastrointestinal: normal bowel sounds, soft - Integumentary Integumentary: decreased turgor, normal - Neurologic Neurologic: CNII-XII intact (Negative for Kernig's or Brudzinski's sign, neck is supple, occipital tenderness noted bilaterally) - Musculoskeletal Musculoskeletal: gait normal, strength equal bilaterally - Psychiatric Psychiatric: A&O x's 3, intact judgment & insight - Labs CBC & Chem 7: 08/26/17 06:48 08/26/17 06:48 Labs: Abnormal Lab Results - Last 24 Hours (Table) 08/25/17 08/25/17 08/25/17 Range/Units 03:30 16:58 20:48 WBC (3.8-10.6) k/uL Hgb (13.0-17.5) gm/dL Neutrophils # (1.3-7.7) k/uL Lymphocytes # (1.0-4.8) k/uL BUN (9-20) mg/dL Glucose (74-99) mg/dL POC Glucose (mg/dL) 200 H 228 H (75-99) mg/dL Hemoglobin A1c 8.3 H (4.2-6.1) % AST (17-59) U/L Total Protein (6.3-8.2) g/dL Albumin (3.5-5.0) g/dL 08/26/17 08/26/17 08/26/17 Range/Units 03:42 06:48 06:48 WBC 18.4 H (3.8-10.6) k/uL Hgb 12.9 L (13.0-17.5) gm/dL Neutrophils # 17.6 H (1.3-7.7) k/uL Lymphocytes # 0.5 L (1.0-4.8) k/uL BUN 24 H (9-20) mg/dL Glucose 275 H (74-99) mg/dL POC Glucose (mg/dL) 213 H (75-99) mg/dL Hemoglobin A1c (4.2-6.1) % AST 16 L (17-59) U/L Total Protein 6.1 L (6.3-8.2) g/dL Albumin 3.3 L (3.5-5.0) g/dL 08/26/17 08/26/17 Range/Units 06:56 11:54 WBC (3.8-10.6) k/uL Hgb (13.0-17.5) gm/dL Neutrophils # (1.3-7.7) k/uL Lymphocytes # (1.0-4.8) k/uL BUN (9-20) mg/dL Glucose (74-99) mg/dL POC Glucose (mg/dL) 272 H 320 H (75-99) mg/dL Hemoglobin A1c (4.2-6.1) % AST (17-59) U/L Total Protein (6.3-8.2) g/dL Albumin (3.5-5.0) g/dL Assessment and Plan Plan: 1. Lower extremity but the headache with neck pain, highly suspicious off occipital neuralgia of rather than meningitis, patient's evaluation would include neurology consultation, patient might need occipital nerve block bilaterally, muscle relaxants would be given, Toradol 30 mg IV every 6 hours, Flexeril 5 mg 3 times a day, Valium 2 mg one time dose tonight. Dr. Calles is on consult, discussed the case with him, there is a small likelihood that an LP would be needed down the line secondary to leukocytosis however this is less likely, however should it be performed, viral cultures including HSV PCR, arbovirus, would need need to be sent along with bacterial cultures. Patient denies any history of recurrent meningitis the past. High-dose Solu-Medrol started 2. Leukocytosis, etiology is undetermined at this time, urinalysis will be obtained, 3. Diabetes mellitus type 2 - uncontrolled secondary to steroids on Januvia which we continued, metformin which is currently on hold secondary to contrast studies continue Glucotrol 4. 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 Hypertension currently on amlodipine 5 mg daily and Accupril 10 mg DO NOT RESUSCITATE no changes made 6. GI prophylaxis maintenance Protonix at home, next DVT prophylaxis on early ambulation and KLAUDIA hose Discharge plan: Home tomorrow Impression and plan of care have been directed as dictated by the signing physician. Adele Liriano nurse practitioner acting as scribe for signing physician.
--- NOTE | 2017-08-30 15:12 | P.DS ---
Providers Date of admission: 08/25/17 06:31 Expected date of discharge: 08/27/17 Attending physician: Mario Tai MD Consults: 08/25/17 06:31 Consult Physician Urgent Consulting Provider: Phan Calles Consult Reason/Comments: Headache Do you want consulting provider notified?: Yes [facility] Course: This is a 67-year-old gentleman patient of Dr. Quiles. 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 Patient had taken some Tylenol [id number]-nks-cxsugst with a muscle relaxant with no relief of symptoms. Patient's pain is aggravated by neck movement, it's also admitted by driving, no diplopia no nausea, no fever no chills, no delirium, no motor deficits or sensory deficits in upper or lower extremities. Pain is rated at 7 out of 10, no similar symptoms in the past related to this. He had headaches in the past for which it has resolved and headache was thought to be related to his CVA, In the emergency room he was evaluated to include an MRI of the brain which shows the left inferior cerebellar infarct, computed tomography scan of the brain shows old infarcts without any acute abnormalities, leukocytosis noted 17.6 WBC with 15.1 neutrophils no urinalysis was performed creatinine 0.80 INR, normal liver function test him a no LP performed 08/26: Patient has been started on high dose Solu-Medrol and his diabetic medications were initially on hold which will be resumed and patient also started on sliding insulin scale. Patient has been seen by Dr. Calles for occipital neuritis. We will plan to monitor the patient overnight and probable discharge tomorrow. 08/27: Patient is headache is much improved and he is anxious to be discharged home. Patient will be discharged home today in stable condition. Dr. Calles was contacted and patient does not require steroids at discharge. Discharge diagnoses: 1. Occipital neuritis 2. Leukocytosis, etiology is undetermined at this time 3. Diabetes mellitus type 2 - uncontrolled secondary to steroids 4. 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 Hypertension Discharge plan: Home Impression and plan of care have been directed as dictated by the signing physician. Adele Liriano nurse practitioner acting as scribe for signing physician. Plan - Discharge Summary New Discharge Prescriptions: New Cyclobenzaprine [Flexeril] 5 mg PO TID PRN #60 tab PRN Reason: Muscle Spasm traMADol HCl [Ultram] 50 mg PO QID #20 tab Continue metFORMIN HCL 1,000 mg PO BID glipiZIDE [Glucotrol] 10 mg PO TID Aspirin 81 mg PO PC-SUPPER Quinapril HCl [Accupril] 10 mg PO PC-SUPPER Pantoprazole Sodium [Protonix] 40 mg PO PC-SUPPER sitaGLIPtin [Januvia] 100 mg PO DAILY Atorvastatin Calcium [Lipitor] 40 mg PO HS amLODIPine [Norvasc] 5 mg PO DAILY Discharge Medication List Aspirin 81 mg PO PC-SUPPER 09/27/14 [History] Pantoprazole Sodium [Protonix] 40 mg PO PC-SUPPER 09/27/14 [History] Quinapril HCl [Accupril] 10 mg PO PC-SUPPER 09/27/14 [History] glipiZIDE [Glucotrol] 10 mg PO TID 09/27/14 [History] metFORMIN HCL 1,000 mg PO BID 09/27/14 [History] Atorvastatin Calcium [Lipitor] 40 mg PO HS 08/25/17 [History] amLODIPine [Norvasc] 5 mg PO DAILY 08/25/17 [History] sitaGLIPtin [Januvia] 100 mg PO DAILY 08/25/17 [History] Cyclobenzaprine [Flexeril] 5 mg PO TID PRN #60 tab 08/27/17 [Rx] traMADol HCl [Ultram] 50 mg PO QID #20 tab 08/27/17 [Rx] Follow up Appointment(s)/Referral(s): Phan Calles MD [STAFF PHYSICIAN] - 2 Weeks (Office will call with appointment.) Ortiz Quiles DO [Primary Care Provider] - 1 Week Patient Instructions/Handouts: Acute Headache (DC) Discharge Disposition: HOME SELF-CARE
== END 2017-08-27 14:50 | disposition home or self-care (01) ==
LOC: EC 02:32 → 3OBS 06:31
PROVIDERS: ADMIT Internal Medicine; ATTEND Internal Medicine
DX: M79.2 Neuralgia and neuritis, unspecified (principal); D72.829 Elevated white blood cell count, unspecified; E11.65 Type 2 diabetes mellitus with hyperglycemia; T38.0X5A Adverse effect of glucocorticoids and synthetic analogues, initial encounter; Z86.73 Personal history of transient ischemic attack (TIA), and cerebral infarction without residual deficits; I10 Essential (primary) hypertension; Z79.82 Long term (current) use of aspirin; Z79.84 Long term (current) use of oral hypoglycemic drugs; Z79.899 Other long term (current) drug therapy; Z88.0 Allergy status to penicillin; Z91.013 Allergy to seafood; K21.9 Gastro-esophageal reflux disease without esophagitis; E78.5 Hyperlipidemia, unspecified; Z87.891 Personal history of nicotine dependence; Z66 Do not resuscitate; M54.2 Cervicalgia; R51 Headache; M43.6 Torticollis
CPT/HCPCS: 99285; 96374; 96375 ×3; 96361 ×4; 96376 ×3; 36415; 93005; 80053 ×2; 83036; 82550; 82553; 84484; 85025 ×2; 85610; 85730; 81003; 87086; 71020; 70450; G0378 ×3; J2270; J2930 ×3; J3360; J2405; J1885; J1170

== ENCOUNTER → 2017-11-16 | Outpatient (CLI) | payer BC ==
--- NOTE | 2017-11-16 09:48 | MR ---
EXAMINATION TYPE: MR cervical spine wo con DATE OF EXAM: 11/16/2017 COMPARISON: NONE HISTORY: Cervical Pain TECHNIQUE: Multiplanar, multisequence images of the cervical spine were acquired. C2-C3: Benign cystic lesion involving the odontoid. There is degenerative disc disease. C3-C4: There is degenerative disc disease and mild facet arthropathy. Uncovertebral joint hypertrophy with mild left foraminal encroachment but no canal stenosis. C4-C5: Degenerative disc disease with central disc protrusion abutting the anterior margin the spinal cord resulting AP spinal canal stenosis. C5-C6: Moderate degenerative disc disease with posterior spondylosis with anterior compression of the spinal cord and severe canal stenosis. Uncovertebral joint hypertrophy and facet arthropathy result in bilateral foraminal encroachment greater on the right. Disc herniation capped by spur noted. C6-C7: Severe degenerative disc disease with posterior spondylosis and broad-based disc herniation ca pped by spur resulting in anterior compression the spinal cord and severe spinal stenosis. Uncoverteb ral joint hypertrophy and facet arthropathy result in bilateral foraminal encroachment. C7-T1: No evidence for degenerative disc disease. No disc bulge/herniation or protrusion. No Canal stenosis. Foramina are patent bilaterally. Cervical segments are intact. There is normal alignment. Cervical spinal cord is of normal signal. Craniovertebral junction relationships are within normal limits. There is to be evidence of previou s atrophic changes involving the left cerebellum findings suggestive of previous infarct. Areas of hi gh signal on T1 sagittal are stable from the previous MRI of 2016 within the cerebellum. Previous hem orrhagic infarction in the differential diagnosis. IMPRESSION: 1. Multilevel moderate to severe degenerative disc disease with multilevel spondylosis and disc herni ation capped by spur resulting in anterior compression of the spinal cord particularly at C5-C6 and C 6-C7 with significant foraminal encroachment and canal stenosis. 2. Abnormal appearance of the left cerebellum as previously noted by previous MRI and CT scans sugges tive of previous infarct.
== END | disposition home or self-care (01) ==
LOC: RADMRIMAIN 08:35
PROVIDERS: ATTEND Family Medicine
DX: M48.02 Spinal stenosis, cervical region (principal); M50.221 Other cervical disc displacement at C4-C5 level; M50.31 Other cervical disc degeneration, high cervical region; M47.812 Spondylosis without myelopathy or radiculopathy, cervical region
CPT/HCPCS: 72141

== ENCOUNTER → 2019-07-24 | Outpatient (CLI) | payer MEDICARE ==
[2019-07-24 19:28] LABS: Hemoglobin A1C 8.2 % (4.0-6.0)
== END | disposition home or self-care (01) ==
LOC: LABWHC1 09:22
PROVIDERS: ATTEND Internal Medicine
DX: E11.65 Type 2 diabetes mellitus with hyperglycemia (principal)
CPT/HCPCS: 36415; 83036; 84681

== ENCOUNTER → 2019-09-30 | Outpatient (CLI) | payer MEDICARE ==
[2019-09-30 18:46] LABS: Hemoglobin A1C 7.1 % (4.0-6.0)
== END | disposition home or self-care (01) ==
LOC: LABWHC1 08:18
PROVIDERS: ATTEND Internal Medicine
DX: E11.65 Type 2 diabetes mellitus with hyperglycemia (principal)
CPT/HCPCS: 36415; 83036

== ENCOUNTER → 2019-09-30 | Outpatient (CLI) | payer MEDICARE ==
[2019-09-30 08:54] LABS: HCT 41.9 % (39.0-53.0); HGB 13.5 gm/dL (13.0-17.5); MCH 29.4 pg (25.0-35.0); MCHC 32.2 g/dL (31.0-37.0); MCV 91.4 fL (80.0-100.0); Mean Platelet Volume 7.9; Platelet Count 285 k/uL (150-450); RBC 4.58 m/uL (4.30-5.90); RDW 12.7 % (11.5-15.5)
[2019-09-30 09:01] LABS: Calcium 9.5 mg/dL (8.4-10.2); Potassium 4.8 mmol/L (3.5-5.1); Total Bilirubin 0.5 mg/dL (0.2-1.3); Total Protein 6.8 g/dL (6.3-8.2)
[2019-09-30 09:17] LABS: INR 0.9 (<1.2); Partial Thromboplastin Time 25.1 sec (22.0-30.0); Prothrombin Time 10.1 sec (9.0-12.0)
[2019-09-30 09:26] LABS: Appearance,Urine Clear (Clear); Bilirubin,Urine Negative (Negative); Blood,Urine Negative (Negative); Color,Urine Yellow; Glucose,Urine (UA) 4+ (Negative); Ketones,Urine Negative (Negative); Leukocyte Esterase,Urine Negative (Negative); Nitrite,Urine Negative (Negative); Protein,Urine Negative (Negative); Specific Gravity,Urine 1.033 (1.001-1.035); Urobilinogen,Urine <2.0 mg/dL (<2.0)
== END ==
LOC: LABPAT 08:15
PROVIDERS: ATTEND Orthopaedic Surgery Sports Medicine
DX: Z01.812 Encounter for preprocedural laboratory examination (principal); M17.12 Unilateral primary osteoarthritis, left knee; Z79.01 Long term (current) use of anticoagulants
CPT/HCPCS: 36415; 80053; 81003; 85027; 85610; 85730; 87070

== ENCOUNTER 2019-10-11 12:45 | Day surgery (SDC) | payer MEDICARE ==
[~2019-10-11 12:45] MED LIST: HYDROmorphone 0.5 MG/0.5 ML SYRINGE IVP PRN; LIDOCAINE 1% 20 ML VIAL (10MG/ML) FOR IV START INTRADERMA PRN; MIDAZOLAM 2 MG/2 ML VIAL IV PRN; ONDANSETRON 4 MG/2 ML VIAL IVP ONE; ROPIVACAINE 246.25 MG, EPINEPHrine 0.5 MG, KETOROLAC 30 MG, cloNIDine HCL/PF 80 MCG, WA... MISCELLANE ONE; SCOPOLAMINE 1.5MG/72HR PATCH TRANSDERM ONE
[2019-10-11] MEDS: MELOXICAM 7.5 MG TAB PO ONE ×2 (13:02→17:15)
[2019-10-11] MEDS: ACETAMINOPHEN TAB 500 MG TAB PO ONE ×2 (13:02→17:15)
[2019-10-11] MEDS: GABAPENTIN 300 MG CAP PO ONE ×2 (13:05→17:15)
[2019-10-11 13:31] LABS: Glucose,Whole Blood 162 mg/dL (75-99)
[2019-10-11] MEDS: LACTATED RINGERS 1,000 ML IV SCH ×4 (13:41→20:27)
[2019-10-11] MEDS: DEXAMETHASONE SOD PHOSPHATE 10 MG/ML 1 ML VIAL IV ONE ×2 (13:42→17:16)
[2019-10-11] MEDS: ONDANSETRON 4 MG/2 ML VIAL IVP ONE ×2 (13:42→17:16)
[2019-10-11] MEDS ORDERED: SODIUM CHLORIDE 0.9% 100 ML BAG ONE (14:04)
[2019-10-11] MEDS ORDERED: fentaNYL (PF) 50 MCG/ML 2 ML AMP ONE (14:04)
[2019-10-11] MEDS ORDERED: KETAMINE 10 MG/ML 20 ML VIAL ONE (14:04)
[2019-10-11] MEDS ORDERED: MIDAZOLAM 2 MG/2 ML VIAL ONE (14:04)
[2019-10-11] MEDS ORDERED: diphenhydrAMINE 50 MG/ML 1 ML VIAL ONE (14:04)
[2019-10-11] MEDS ORDERED: TRANEXAMIC ACID 1,000 MG/10 ML VIAL ONE (14:04)
[2019-10-11] MEDS ORDERED: TRANEXAMIC ACID 1,000 MG in SODIUM CHLORIDE 0.9% 100 ML IVPB ONE ×4 (14:15)
[2019-10-11] MEDS ORDERED: traMADol 50 MG TAB PO PRN (14:18)
[2019-10-11] MEDS ORDERED: HYDROcodone/APAP 5-325MG 1 EACH TAB PO PRN (14:18)
[2019-10-11] MEDS ORDERED: MAGNESIUM HYDROXIDE 2,400 MG/10 ML CUP PO PRN (14:18)
[2019-10-11] MEDS ORDERED: HYDROmorphone 0.5 MG/0.5 ML SYRINGE IVP PRN ×3 (14:18)
[2019-10-11] MEDS ORDERED: DIAZEPAM 5 MG TAB PO PRN (14:18)
[2019-10-11] MEDS ORDERED: HYDROcodone/APAP 10-325MG 1 EACH TAB PO PRN (14:18)
[2019-10-11] MEDS ORDERED: NA PHOS,M-B/NA PHOS,DI-BA 133 ML ENEMA RECTAL PRN (14:18)
[2019-10-11] MEDS ORDERED: ONDANSETRON 4 MG/2 ML VIAL IVP PRN (14:18)
[2019-10-11] MEDS ORDERED: hydrOXYzine PAMOATE 25 MG CAP PO PRN (14:18)
[2019-10-11] MEDS ORDERED: NALOXONE 0.4 MG/ML 1 ML VIAL IV PRN ×2 (14:18→17:31)
[2019-10-11] MEDS ORDERED: BISACODYL 10 MG SUPP RECTAL PRN (14:18)
[2019-10-11] MEDS ORDERED: TEMAZEPAM 15 MG CAP PO PRN (14:18)
[2019-10-11] MEDS ORDERED: LACTATED RINGERS 1,000 ML IV ONE (15:15)
--- NOTE | 2019-10-11 16:31 | XR ---
Right knee HISTORY: Postop right knee 2 views of the right knee Patient is status post right knee arthroplasty. There is anatomic alignment. Lucency in the soft tiss ues is compatible with postop state. There are vascular calcifications noted incidentally. IMPRESSION: Orthopedic follow-up.
[2019-10-11 17:27] LABS: Glucose,Whole Blood 132 mg/dL (75-99)
[2019-10-11] MEDS ORDERED: diphenhydrAMINE 50 MG/ML 1 ML VIAL IVP PRN (17:31)
[2019-10-11 17:39] VITALS: BMI 29.0
[2019-10-11 17:42] VITALS: RESP 16
[2019-10-11 20:22] LABS: Glucose,Whole Blood 301 mg/dL (75-99)
[2019-10-11] MEDS: metFORMIN 500 MG TAB PO SCH (20:27)
[2019-10-11] MEDS: INSULIN ASPART (NovoLOG) 100 UNIT/ML VIAL SQ SCH (20:28)
[2019-10-11] MEDS: ASPIRIN 325 MG TAB PO SCH (20:28)
[2019-10-11] MEDS ORDERED: SENNOSIDES-DOCUSATE SODIUM 1 EACH TAB PO SCH (21:00)
[2019-10-11] MEDS ORDERED: amLODIPine 5 MG TAB PO SCH (21:00)
--- NOTE | 2019-10-11 23:34 | OP ---
OPERATIVE REPORT DATE OF PROCEDURE: 10/11/2019 SURGEON: Robi Merchant MD. COAT BASTER: BARRY Mauro. PREOPERATIVE DIAGNOSIS: Left knee osteoarthrosis. POSTOPERATIVE DIAGNOSIS: Left knee osteoarthrosis. OPERATION: Left total knee arthroplasty. ANESTHESIA: Spinal with sedation. ESTIMATED BLOOD LOSS: 100 mL. TOURNIQUET: Tourniquet time was 47 minutes at 250 mmHg. COMPLICATIONS: None apparent. DRAINS: None. DISPOSITION: Post-Anesthesia Care Unit. INDICATIONS: Ritesh is a very pleasant 69-year-old male with a longstanding history of left knee pain. History and physical examination are consistent with advanced left knee osteoarthrosis. He has been through significant nonoperative management up to this point. Further treatment options were discussed and he has decided to go forward with left total knee arthroplasty. The risks of the procedure were all discussed with him in detail. These risks include but are not limited to risk of infection, nerve damage, bleeding, pain, and a risk of deep vein thrombosis which could lead to fatal pulmonary embolism. There is also a risk of loosening of the implant which could require revision operation. The patient understands these risks. All of his questions were answered to his satisfaction. Appropriate informed consent was obtained. DESCRIPTION OF THE PROCEDURE: The patient was identified in the preoperative holding area. Surgical site was marked by both the patient and myself. He was given 2 grams of Ancef IV for prophylactic purposes. He was then transferred to the operative suite, where he was placed supine on the operating room table. Spinal anesthetic was then administered and dosed per the anesthesia department without apparent complication. Examination under anesthesia was then performed. The patient was 2 to 3 degrees shy of full extension. He had 100 degrees of flexion, and the medial collateral ligament, lateral collateral ligament and posterior cruciate ligaments were stable. Tourniquet was then placed high on the left upper thigh, well padded in preparation for surgery. The patient's left lower extremity was then prepped and draped in the usual sterile fashion. A standard surgical pause was undertaken to ensure that we were operating on the correct site and that appropriate preoperative antibiotics had been given. All staff in the room were in agreement and we proceeded. The outlines of the patella were marked with a surgical pen. A planned 12 cm vertical incision centered over the patella was marked with the surgical pen. The leg was then exsanguinated with an Esmarch dressing. The knee was then flexed and the tourniquet was inflated to 250 mmHg. The total tourniquet time for the procedure was 47 minutes. Incision was then made with a 10-blade scalpel. Dissection was carried down sharply to the overlying fascia. Great care was taken to minimize the skin flaps. The knee was then exposed using a standard medial parapatellar approach. A small cuff of quadriceps tendon was then left for suturing. He was in a bit of varus preoperatively. A standard medial release was then made. The superficial medial collateral ligament was dissected off the bone around to the posterior aspect of the proximal tibia. The medial meniscus was then excised as well. The lateral meniscus was also released anteriorly. The leg was then externally rotated. The patella was everted. The knee was flexed. The retractors were then placed to protect the collateral ligaments. I then proceeded to remove the infrapatellar fat pad. This was excised sharply tangentially with the fibers of the patellar tendon. I then proceeded to remove the peripheral osteophytes. This was done with a rongeur. I then proceeded with the distal femoral resection. He did have near-full extension. A planned 9 mm resection was then done. The femoral canal was then entered in the midline of the femur approximately 10 mm anterior to the origin of the posterior cruciate ligament. The kiarra was then advanced down the center of the femur and placed intramedullary. Based on the preoperative radiographs, the angle between the anatomic and mechanical axes of the femur was approximately 4 to 5 degrees. The valgus angle of the distal femoral cutting guide was then set at 4 degrees for the left knee. The distal femoral cutting guide was then advanced over the intramedullary kiarra. This was seated firmly against the femur. I then, as mentioned, planned to take 9 mm off the distal femur. The cutting block was then secured to the femur with pins. The jig was then removed and the distal femoral cut was made through the slot of the block. The pins were then removed and the distal femoral cutting block was removed. The accuracy of the distal femoral cuts was checked with 2 flat bars. I then proceeded with femoral sizing. The posterior referencing sizing guide was held firmly against the resected distal surface of the femur. The posterior condyles were resting on the posterior plane of the guide. The sizing stylus was then placed onto the anterior femur. The size was measured as a size 9. I then assessed for femoral rotation. The plan was for 3 degrees of external rotation. Three degrees of external rotation was placed onto the jig. These holes were then marked. I then confirmed the rotation by 3 separate methods. This was done using the epicondylar axis as well as Whitesides line and posterior referencing. It was deemed that the external rotation was proper. I then went forward with placing the femoral cutting block. This was placed over the previously placed pin holes. The [place] wing was then placed onto the anterior slots to ensure that we would not notch the anterior femur with the anterior femoral cut. I then proceeded with the anterior femoral cut. This was flush with the anterior cortex of the femur. Posterior cuts were then made followed by the anterior chamfer cut and then the posterior chamfer cut. The cutting block was then removed. Throughout the resection, the collateral ligaments were protected with retractors. I then placed a trial size 9 femur. It fit very nicely medial to lateral and fit flush with the distal end of the femur. The drill holes were then made. I then proceeded with the tibial cut. I planned for a cruciate-retaining knee. The guide was placed and set for varus, valgus and for slope. The height was set for an approximate 2 mm resection from the medial tibial plateau, which was the lower side. I was happy with the alignment and the amount of resection. The cutting block was then pinned to the proximal tibia. The alignment kiarra was removed and the proximal tibia was resected with a reciprocating saw. Again this was done with retractors protecting the collateral ligaments as well as the posterior cruciate ligament. I then proceeded to evaluate the flexion and extension gaps. A 10 mm block was then placed. The flexion and extension gaps were equal. I then proceeded with resection of the posterior osteophytes. He had very minimal posterior osteophytes. This was done using a curved osteotome. This resected the posterior osteophytes, and posterior capsule stripping was also done off the posterior aspect of the femur at this time. The osteophytes were then removed. I then proceeded with resection of the patella. The thickness of the patella was measured using a caliper. The thickness was 22 mm. The thickness of the anticipated patellar dome was taken into account. Resection was then performed and confirmed to be equal in 4 quadrants using a caliper. Approximately 14 mm of bone remained after the resection. A 32 x 8.5 mm standard patellar trial was then placed. The holes were drilled and the trial was then placed. I then proceeded with sizing of the tibial plate. A size E tibial plate fit very nicely. I then placed the trial femur and the tibial tray and the patellar button. A 10 mm trial tibial insert was also placed. The components fit very nicely. He had full extension and flexion. The extension and flexion gaps were equal and stable to both varus and valgus stress. The patella tracked appropriately. The tibial tray rotation was then marked with a Bovie. This was externally rotated properly. I then proceeded with tibial preparation. I first drilled the femoral holes and removed the femoral component. The tibial tray was then set for proper external rotation as well as mediolateral placement onto the tibia. It was then pinned into place. I then proceeded with punching the keel. I then decided to proceed with cementing of all of our components. The knee was thoroughly irrigated with sterile saline solution via pulse lavage. The lateral geniculate artery was identified and cauterized. All blood was removed from the bone of the tibia, femur and patella with pulse lavage. I then proceeded with cementing. Two packs of antibiotic bone cement were prepared on the back table by the surgical asst. I then proceeded with cementing of the tibia first. Cement was impacted into the keel as well as deeply seated into the bone. A second coat of cement was then placed. The tibia was then impacted into place. Excess cement was removed with [place]'s and Joker's. I then proceeded with cementing of the femoral component. The femoral component was also cemented using standard technique. Excess cement was removed. A 10 mm trial insert was then placed into the knee. It was brought into full extension with a constant axial load placed until the cement had hardened. The patellar component was then cemented. This was held firmly with a compressive device until the cement had dried. When the cement had dried, the knee was taken out of extension. All excess cement was removed from around the prosthesis. I then trialed the knee with a 10 mm insert. The flexion and extension gaps were appropriate. The knee was stable. It came into full extension. It was decided to go forward with a 10 mm medial-congruent cruciate- retaining tibial insert. Polyethylene was then placed onto the tibial tray and locked into place. The knee was then reduced. The knee was again further irrigated with sterile saline solution with antibiotic added. The tourniquet was then deflated. The total tourniquet time for the procedure was 47 minutes at 250 mmHg. Final components were a Katerin Persona size 9 cruciate-retaining femoral component, a size E tibial tray, a 10 mm medial-congruent cruciate-retaining polyethylene insert and a 32 x 8.5 mm patella. I then proceeded with closure. Again the knee was thoroughly irrigated. The quadriceps tendon and the medial retinaculum were reapproximated with a #2 Ethibond suture. The extensor mechanism was then closed with a running #2 Quill suture. Subcutaneous tissues were then closed with 2-0 Vicryl interrupted suture. The skin was closed with a running 3-0 Quill suture. Dermabond was applied to the incision. Sterile compressive dressings were then applied. All sponge and needle counts were deemed correct prior to closure. The patient tolerated the procedure without apparent complication. He was transferred to the recovery room in stable condition. MMODL / IJN: [id number] /
[2019-10-12] MEDS: LACTATED RINGERS 1,000 ML IV SCH (05:50)
[2019-10-12 06:54] LABS: Glucose,Whole Blood 205 mg/dL (75-99)
[2019-10-12] MEDS ORDERED: INSULIN DETEMIR (LEVEMIR) 100 UNIT/ML SYR SQ SCH (07:00)
[2019-10-12 07:12] VITALS: BP 129/67; PULSE 75; TEMP 98.3
[2019-10-12 07:24] LABS: Basophils # (A) 0.1 k/uL (0-0.2); Basophils % (A) 0 %; Eosinophils # (A) 0.1 k/uL (0-0.7); Eosinophils % (A) 0 %; HCT 35.2 % (39.0-53.0); HGB 11.6 gm/dL (13.0-17.5); Lymphocytes # (A) 1.5 k/uL (1.0-4.8); Lymphocytes % (A) 10 %; MCV 90.9 fL (80.0-100.0); Mean Platelet Volume 7.9; Monocytes # (A) 0.8 k/uL (0-1.0); Monocytes % (A) 5 %; Neutrophils # (A) 12.3 k/uL (1.3-7.7); Neutrophils % (A) 83 %; Platelet Count 255 k/uL (150-450); RBC 3.87 m/uL (4.30-5.90); RDW 12.5 % (11.5-15.5); WBC 14.8 k/uL (3.8-10.6)
[2019-10-12] MEDS: ASPIRIN 325 MG TAB PO SCH (07:55)
[2019-10-12] MEDS: metFORMIN 500 MG TAB PO SCH (07:56)
--- NOTE | 2019-10-12 08:05 | P.PN ---
Progress Note - Text 10/12 728am 69-year-old male status post total knee replacement by Dr. Merchant. Patient had a spinal anesthetic with Duramorph for postop pain control. Patient seen this morning and evaluated, patient has a VAS of 1 with no complaints of nausea vomiting or pruritus. Patient to follow-up with SERVICE for postop pain control
[2019-10-12] MEDS: INSULIN ASPART (NovoLOG) 100 UNIT/ML VIAL SQ SCH ×2 (08:08→11:40)
[2019-10-12] MEDS ORDERED: PIOGLITAZONE 30 MG TAB PO SCH (09:00)
[2019-10-12] MEDS ORDERED: NON FORMULARY DRUG (Empagliflozin [Jardiance] 25 MG) PO SCH (09:00)
--- NOTE | 2019-10-12 10:07 | P.DS ---
Providers Expected date of discharge: 10/12/19 Attending physician: Robi Merchant Consults: 10/11/19 14:18 Consult Physician Routine Consulting Provider: Collins Herrera Consult Reason/Comments: post op medical management Do you want consulting provider notified?: Yes Primary care physician: Ortiz Quiles - Discharge Diagnosis(es) (1) Status post total left knee replacement Patient was admitted to the OR on 10/11/2019 to undergo a left total knee arthroplasty. He had failed conservative measures as an outpatient and desired to proceed with elective surgery after given informed consent. He underwent the above procedure which he tolerated well without complication. Postoperative hospital course has remained without complication. On day of discharge he is afebrile, vital signs stable, labs within acceptable ranges, tolerating by mouth meds and diet, voiding without difficulty, positive flatus, denies abdominal pain or calf pain, pain is controlled on oral pain medication and has no new complaints. Wound is benign, neurovascular status is intact, calf is soft and nontender, abdomen soft and nontender. Review of systems is negative for numbness, tingling, fever, chills, chest pain, shortness of breath, nausea, vomiting, dizziness, headaches, slurred speech or other. Current Visit: Yes Status: Acute Priority: Medium Procedures: Left TKA Patient Condition at Discharge: Good Plan - Discharge Summary Discharge Rx Participant: No New Discharge Prescriptions: New Aspirin 325 mg PO BID #60 tab Docusate [Colace] 100 mg PO BID #60 capsule HYDROcodone/APAP 7.5-325MG [[place] 7.5-325] 1 - 2 each PO Q6HR PRN #56 tab PRN Reason: Pain Continue metFORMIN HCL 1,000 mg PO BID Quinapril HCl [Accupril] 10 mg PO W/SUPPER Pantoprazole Sodium [Protonix] 40 mg PO W/LUNCH sitaGLIPtin [Januvia] 100 mg PO W/LUNCH Atorvastatin Calcium [Lipitor] 40 mg PO W/LUNCH amLODIPine [Norvasc] 5 mg PO HS Insulin Glargine,Hum.rec.anlog [Juana Jasmine] 20 units SQ QAM Pioglitazone [Actos] 30 mg PO DAILY Empagliflozin [Jardiance] 25 mg PO DAILY Aspirin 81 mg PO HS #0 Discharge Medication List Pantoprazole Sodium [Protonix] 40 mg PO W/LUNCH 09/27/14 [History] Quinapril HCl [Accupril] 10 mg PO W/SUPPER 09/27/14 [History] metFORMIN HCL 1,000 mg PO BID 09/27/14 [History] Atorvastatin Calcium [Lipitor] 40 mg PO W/LUNCH 08/25/17 [History] amLODIPine [Norvasc] 5 mg PO HS 08/25/17 [History] sitaGLIPtin [Januvia] 100 mg PO W/LUNCH 08/25/17 [History] Empagliflozin [Jardiance] 25 mg PO DAILY 10/06/19 [History] Insulin Glargine,Hum.rec.anlog [[place] Solostar] 20 units SQ QAM 10/06/19 [History] Pioglitazone [Actos] 30 mg PO DAILY 10/06/19 [History] Aspirin 81 mg PO HS #0 10/12/19 [Rx] Aspirin 325 mg PO BID #60 tab 10/12/19 [Rx] Docusate [Colace] 100 mg PO BID #60 capsule 10/12/19 [Rx] HYDROcodone/APAP 7.5-325MG [[place] 7.5-325] 1 - 2 each PO Q6HR PRN #56 tab 10/12/19 [Rx] Follow up Appointment(s)/Referral(s): Ortiz Quiles DO [Primary Care Provider] - 1 Week Robi Merchant MD [STAFF PHYSICIAN] - 10 Days Activity/Diet/Wound Care/Special Instructions: Keep wound clean and dry Take meds as directed Follow-up with Dr. Merchant in office Weight bear as tolerated May shower in 3 days if no bleeding Discharge Disposition: HOME WITH HOME HEALTH SERVICES
[2019-10-12 11:27] LABS: Glucose,Whole Blood 136 mg/dL (75-99)
[2019-10-12] MEDS ORDERED: MULTIVITAMINS, THERA 1 EACH TAB PO SCH (12:00)
[2019-10-12] MEDS ORDERED: ATORVASTATIN 40 MG TAB PO SCH (12:30)
[2019-10-12] MEDS ORDERED: PANTOPRAZOLE 40 MG TABLET PO SCH (12:30)
[2019-10-12] MEDS ORDERED: LINAGLIPTIN 5 MG TABLET PO SCH (12:30)
--- NOTE | 2019-10-12 13:46 | P.CONS ---
History of Present Illness - Reason for Consult Consult date: 10/12/19 Medical management - History of Present Illness This is a 69-year-old male patient of Dr. 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 Patient has been admitted under the care of Dr. Merchant status post left total knee arthroplasty. Patient is seen on the first postop day. Patient denies any chest pain or shortness of breath. He states that his pain to the knee is controlled. He denies any lightheadedness or dizziness. Blood sugars were high during the night and improving this morning. Patient is anticipating discharge home later today. Review of Systems Constitutional: Denies anorexia, Denies chills, Denies fever, Denies poor appetite, Denies weakness Eyes: denies blurred vision, denies pain Ears, nose, mouth and throat: Denies headache, Denies nasal congestion, Denies nasal discharge, Denies sore throat, Denies vertigo Cardiovascular: Denies chest pain, Denies decreased exercise tolerance, Denies dyspnea on exertion, Denies lightheadedness, Denies palpitations, Denies shortness of breath, Denies syncope Respiratory: Denies cough, Denies cough with sputum, Denies dyspnea, Denies excessive sputum, Denies hemoptysis, Denies home oxygen, Denies wheezing Gastrointestinal: Denies abdominal pain, Denies diarrhea, Denies loss of appetite, Denies nausea, Denies vomiting Genitourinary: Denies dysuria, Denies urinary retention Musculoskeletal: Denies muscle weakness, Denies myalgias Integumentary: Denies pruritus, Denies rash Neurological: Denies change in mentation, Denies change in speech, Denies numbness, Denies weakness Psychiatric: Denies anxiety, Denies depression Endocrine: Denies fatigue, Denies weight change Past Medical History Past Medical History: CVA/TIA, Diabetes Mellitus, GERD/Reflux, Hyperlipidemia, Hypertension, Osteoarthritis (OA) Additional Past Medical History / Comment(s): CVA 5 years ago, some balance problems, Headaches., arthritis in hands, frequent daniel horses in legs. History of Any Multi-Drug Resistant Organisms: None Reported Past Surgical History: Orthopedic Surgery, Tonsillectomy Additional Past Surgical History / Comment(s): Right rotator cuff , Left rotator cuff x2., left knee arthroscopy, colonoscopy Past Anesthesia/Blood Transfusion Reactions: No Reported Reaction Additional Past Anesthesia/Blood Transfusion Reaction / Comm: numbness left cheek after rotator cuff repair Past Psychological History: No Psychological Hx Reported Additional Psychological History / Comment(s): . Smoking Status: Former smoker Past Alcohol Use History: Occasional Additional Past Alcohol Use History / Comment(s): Pt started smoking in 1966 and quit in 1976. He was 1 ppd smoker. No illicit drug use. He drinks beer several days a week. Past Drug Use History: None Reported - Past Family History Mother Family Medical History: Diabetes Mellitus Additional Family Medical History / Comment(s): Mother at age 83 from a brain tumor with history of diabetes.. Father Family Medical History: CVA/TIA Additional Family Medical History / Comment(s): Father at age 89 from old age. Brother(s) Family Medical History: CVA/TIA Additional Family Medical History / Comment(s): Patient has 2 brothers and one has history of diabetes. Sister(s) Family Medical History: Osteoarthritis (OA) Additional Family Medical History / Comment(s): Patient has 1 sister with no major medical problems. Son(s) Family Medical History: No Reported History Additional Family Medical History / Comment(s): Patient has a total of 4 children: 3 sons and one daughter with no major medical problems. Medications and Allergies Home Medications Medication Instructions Recorded Confirmed Type Pantoprazole Sodium [Protonix] 40 mg PO W/LUNCH 09/27/14 10/11/19 History Quinapril HCl [Accupril] 10 mg PO W/SUPPER 09/27/14 10/11/19 History metFORMIN HCL 1,000 mg PO BID 09/27/14 10/11/19 History Atorvastatin Calcium [Lipitor] 40 mg PO W/LUNCH 08/25/17 10/11/19 History amLODIPine [Norvasc] 5 mg PO HS 08/25/17 10/11/19 History sitaGLIPtin [Januvia] 100 mg PO W/LUNCH 08/25/17 10/11/19 History Empagliflozin [Jardiance] 25 mg PO DAILY 10/06/19 10/11/19 History Insulin Glargine,Hum.rec.anlog 20 units SQ QAM 10/06/19 10/11/19 History [Juana Jasmine] Pioglitazone [Actos] 30 mg PO DAILY 10/06/19 10/11/19 History Aspirin 81 mg PO HS #0 10/12/19 10/11/19 Rx Aspirin 325 mg PO BID #60 tab 10/12/19 Rx Docusate [Colace] 100 mg PO BID #60 capsule 10/12/19 Rx HYDROcodone/APAP 7.5-325MG [[place] 1 - 2 each PO Q6HR PRN #56 tab 10/12/19 Rx 7.5-325] Allergies Allergy/AdvReac Type Severity Reaction Status Date / Time Penicillins AdvReac Itching Verified 10/11/19 13:24 shellfish derived [Shellfish] AdvReac Itching Verified 10/11/19 13:24 Physical Exam Vitals: Vital Signs Temp Pulse Pulse Pulse Pulse Resp BP 10/12/19 07:30 75 16 10/12/19 07:11 98.3 F 75 16 129/67 10/12/19 04:00 97.7 F 74 16 154/86 10/11/19 19:21 98.7 F 76 16 169/72 10/11/19 19:20 77 15 170/80 10/11/19 19:04 77 159/70 10/11/19 18:49 73 161/84 10/11/19 18:34 73 164/75 10/11/19 18:19 97.4 F L 80 145/73 10/11/19 17:42 16 10/11/19 17:01 71 18 130/59 10/11/19 16:46 74 16 130/61 10/11/19 16:31 74 16 135/64 10/11/19 16:16 73 16 133/61 10/11/19 16:05 97.9 F 74 14 126/60 10/11/19 13:19 98.0 F 72 20 159/76 Pulse Ox 10/12/19 07:30 10/12/19 07:11 94 L 10/12/19 04:00 93 L 10/11/19 19:21 94 L 10/11/19 19:20 96 10/11/19 19:04 90 L 10/11/19 18:49 90 L 10/11/19 18:34 96 10/11/19 18:19 10/11/19 17:42 10/11/19 17:01 99 11/13/19 16:46 99 10/11/19 16:31 98 10/11/19 16:16 97 10/11/19 16:05 92 L 10/11/19 13:19 98 Intake and Output 10/11/19 10/12/19 10/12/19 22:59 06:59 14:59 Intake Total 1000 1800 Output Total 100 2400 1200 Balance 900 -600 -1200 Intake: IV 500 Intake, IV Titration 1000 Amount Lactated Ringers 1,000 ml 900 @ 75 mls/hr IV .[id number] [facility] Rx#:[id number] ceFAZolin 2 gm In Sodium 100 Chloride 0.9% 50 ml @ 100 mls/hr IVPB Q8H [facility] Rx#: [id number] Oral 500 800 Output: Urine 2400 1200 Straight 1200 Estimated Blood Loss 100 Gen: This is a 69-year-old male. He is resting in bed and appears to be comfortable and in no acute distress. HEENT: Head is atraumatic, normocephalic. Pupils equal, round. Sclerae is anicteric. NECK: Supple. No JVD. No lymphadenopathy. No thyromegaly. LUNGS: Clear to auscultation. No wheezes or rhonchi. No intercostal retr actions. HEART: Regular rate and rhythm. No murmur. ABDOMEN: Soft. Bowel sounds are present. No masses. No tenderness. EXTREMITIES: No pedal edema. No calf tenderness. Dressing in place to the left knee with no breakthrough drainage or bleeding. NEUROLOGICAL: Patient is awake, alert and oriented x3. Cranial nerves 2 through 12 are grossly intact. Results CBC & Chem 7: 10/12/19 06:59 Labs: Abnormal Lab Results - Last 24 Hours (Table) 10/11/19 10/11/19 10/11/19 Range/Units 13:27 17:25 20:20 WBC (3.8-10.6) k/uL RBC (4.30-5.90) m/uL Hgb (13.0-17.5) gm/dL Hct (39.0-53.0) % Neutrophils # (1.3-7.7) k/uL POC Glucose (mg/dL) 162 H 132 H 301 H (75-99) mg/dL 10/12/19 10/12/19 Range/Units 06:51 06:59 WBC 14.8 H (3.8-10.6) k/uL RBC 3.87 L (4.30-5.90) m/uL Hgb 11.6 L (13.0-17.5) gm/dL Hct 35.2 L (39.0-53.0) % Neutrophils # 12.3 H (1.3-7.7) k/uL POC Glucose (mg/dL) 205 H (75-99) mg/dL Assessment and Plan Plan: 1. Osteoarthritis status post left total knee arthroplasty. Continue incentive spirometry to reduce incidence of atelectasis and hospital-acquired pneumonia. Patient to hold his aspirin 81 mg daily until he completes his course of aspirin 325 mg twice daily for DVT prophylaxis. 2. Diabetes mellitus type 2. Continue Januvia 100 mg with lunch, Toujeo 20 units every morning, metformin 1000 mg twice daily, Actos 30 mg daily, Giardia and 25 mg daily. 3. Hypertension. Continue Norvasc 5 mg at bedtime, quinapril 10 mg with supper. 4. Hyperlipidemia. Continue Lipitor 40 mg with lunch. 5. Gastroesophageal reflux disease. Continue Protonix 40 mg daily. Discharge plan: Home with [facility] Impression and plan of care have been directed as dictated by the signing physician. Adele Liriano nurse practitioner acting as scribe for signing physician.
[2019-10-12 14:29] LABS: Hemoglobin A1C 7.1 % (4.0-6.0)
[2019-10-12] MEDS ORDERED: LISINOPRIL 10 MG TAB PO SCH (17:30)
== END 2019-10-12 13:07 | disposition home health service (06) ==
LOC: OR 12:45 → 4SSUR 16:05 → OR 10-12 13:07
PROVIDERS: ATTEND Orthopaedic Surgery Sports Medicine
DX: M17.12 Unilateral primary osteoarthritis, left knee (principal); I10 Essential (primary) hypertension; E78.5 Hyperlipidemia, unspecified; E11.9 Type 2 diabetes mellitus without complications; K21.9 Gastro-esophageal reflux disease without esophagitis; Z88.0 Allergy status to penicillin; Z91.013 Allergy to seafood; Z79.82 Long term (current) use of aspirin; Z79.4 Long term (current) use of insulin; Z79.899 Other long term (current) drug therapy; Z86.73 Personal history of transient ischemic attack (TIA), and cerebral infarction without residual deficits; Z90.89 Acquired absence of other organs; Z98.890 Other specified postprocedural states; Z87.891 Personal history of nicotine dependence; Z83.3 Family history of diabetes mellitus; Z82.0 Family history of epilepsy and other diseases of the nervous system; Z80.8 Family history of malignant neoplasm of other organs or systems
CPT/HCPCS: 97161; 85025; 88300; 83036; 73560; 27447; C1776; C1713; J2250; J0171; J1200; J1100; J0690 ×2; J2405; J3010; J1885; J2795; J0735

== ENCOUNTER → 2020-01-05 | Outpatient (CLI) | payer MEDICARE ==
[2020-01-05 17:14] LABS: African American GFR (CKD) 72.1 (60.0-200.0); Anion Gap 7.9 mmol/L (4.00-12.00); BUN/Creat Ratio 22.5 Ratio (12.00-20.00); Calcium 9.1 mg/dL (8.7-10.3); Carbon Dioxide 25.1 mmol/L (21.6-31.8); Chol/HDL Ratio 3.08; Non-African American GFR(CKD) 62.2 (60.0-200.0); Potassium 4.7 mmol/L (3.5-5.5)
[2020-01-05 17:45] LABS: Urine Creatinine 63.2 mg/dL
[2020-01-05 18:26] LABS: Hemoglobin A1C 8.1 % (4.0-6.0)
== END | disposition home or self-care (01) ==
LOC: LABWHC1 07:10
PROVIDERS: ATTEND Internal Medicine
DX: E11.65 Type 2 diabetes mellitus with hyperglycemia (principal)
CPT/HCPCS: 36415; 80048; 80061; 82043; 82570; 83036

== ENCOUNTER → 2020-04-25 | Outpatient (CLI) | payer MEDICARE ==
--- NOTE | 2020-04-25 11:40 | XR ---
EXAMINATION TYPE: XR ankle complete RT DATE OF EXAM: 04/25/2020 COMPARISON: NONE HISTORY: 69-year-old male M25.571, pain for 2 months TECHNIQUE: 3 views FINDINGS: Some mild irregularity of the subchondral bone especially along the lateral talar dome. Irregularity seen posteriorly on the lateral view as well. Mild spurring at both medial and lateral malleoli. Os p eroneum. Small posterior and plantar calcaneal spurs. Vascular calcifications. No acute fracture, sub luxation, or dislocation. IMPRESSION: Irregularity of the subchondral bone along the lateral and posterior talar dome relating either to un derlying osteochondral injuries or osteoarthrosis. Otherwise, no acute osseous abnormality seen.
== END | disposition home or self-care (01) ==
LOC: RADXRMAIN 11:06
PROVIDERS: ATTEND Family Medicine
DX: M89.8X7 Other specified disorders of bone, ankle and foot (principal)

== ENCOUNTER → 2020-05-16 | Outpatient (CLI) | payer MEDICARE ==
--- NOTE | 2020-05-22 12:27 | P.ARTDOP ---
Arterial Doppler LOWER EXTREMITY ARTERIAL DOPPLER: DATE OF SERVICE: 05/16/2020 Reason for study: Right ankle pain. Doppler waveforms: Multiphasic bilaterally throughout. Pulse volume recording: []. Pressure gradients: None. Ankle-brachial indices: Greater than 1 on the right and cannot occlude the left. Toe brachial indices: 0.63 on the right, 0.71 on the left Impression: Normal study.
== END | disposition home or self-care (01) ==
LOC: RADUSWWP 12:38
PROVIDERS: ATTEND Family Medicine
DX: I73.9 Peripheral vascular disease, unspecified (principal)
CPT/HCPCS: 93922

== ENCOUNTER → 2022-04-15 | Outpatient (CLI) | payer MEDICARE ==
[2022-04-15 10:43] LABS: Anion Gap 11.8 mmol/L (10.00-18.00); Carbon Dioxide 21.5 mmol/L (20.0-27.5); Potassium 4.5 mmol/L (3.5-5.5)
== END | disposition home or self-care (01) ==
LOC: LABWHC1 07:06
PROVIDERS: ATTEND Otolaryngology
DX: I10 Essential (primary) hypertension (principal); E11.9 Type 2 diabetes mellitus without complications
CPT/HCPCS: 36415; 80051; 82947; 93005

== ENCOUNTER → 2022-11-03 | Outpatient (CLI) | payer MEDICARE | END | disposition home or self-care (01) | LOC: LABWHC1 08:12 | PROVIDERS: ATTEND Family Medicine | DX: N40.0 Benign prostatic hyperplasia without lower urinary tract symptoms (principal) | CPT/HCPCS: 36415; 84153 ==

== ENCOUNTER → 2023-03-30 | Outpatient (CLI) | payer MEDICARE ==
[2023-03-30 15:38] LABS: ALT 20 U/L (10-49); AST 14 U/L (14-35); African American GFR (CKD) 76.7 (60.0-200.0); Albumin/Globulin Ratio 1.75 (1.60-3.17); Alkaline Phosphatase 73 U/L (41-126); BUN/Creat Ratio 19.55 Ratio (12.00-20.00); Blood Urea Nitrogen 21.9 mg/dL (9.0-27.0); Calcium 9.4 mg/dL (8.7-10.3); Carbon Dioxide 25.8 mmol/L (20.0-27.5); Chloride 110 mmol/L (96-109); Chol/HDL Ratio 2.73 Ratio; Globulin 2.3 g/dL (1.6-3.3); Glucose 59 mg/dL (70-110); LDL Cholesterol,Calculated 55.2 mg/dL (0.0-131.0); Non-African American GFR(CKD) 66.2 (60.0-200.0); Potassium 4.8 mmol/L (3.5-5.5); Sodium 146 mmol/L (135-145); Total Protein 6.3 g/dL (6.2-8.2); VLDL Calculation 13.18 mg/dL (5.00-40.00)
== END | disposition home or self-care (01) ==
LOC: LABWHC1 07:51
PROVIDERS: ATTEND Family Medicine
DX: E11.65 Type 2 diabetes mellitus with hyperglycemia (principal); E55.9 Vitamin D deficiency, unspecified
CPT/HCPCS: 36415; 80053; 80061; 82043; 82306; 82570; 83036

== ENCOUNTER → 2023-07-05 | Outpatient (CLI) | payer MEDICARE | END | disposition home or self-care (01) | LOC: LABWHC1 07:17 | PROVIDERS: ATTEND Internal Medicine | DX: E55.9 Vitamin D deficiency, unspecified (principal) | CPT/HCPCS: 36415; 82306 ==

== ENCOUNTER → 2024-04-19 | Outpatient (CLI) | payer MEDICARE ==
[2024-04-19 10:45] LABS: Basophils # (A) 0.05 X 10*3/uL (0.00-0.10); Basophils % (A) 0.5 %; Eosinophils # (A) 0.38 X 10*3/uL (0.04-0.35); Eosinophils % (A) 4.1 %; HCT 42.7 % (39.6-50.0); HGB 13.3 g/dL (13.0-17.0); Lymphocytes # (A) 1.85 X 10*3/uL (0.90-5.00); Lymphocytes % (A) 20.1 %; MCHC 31.1 g/dL (32.0-37.0); MCV 89.9 FL (80.0-97.0); Mean Platelet Volume 12.3 FL (9.5-12.2); Monocytes # (A) 0.68 X 10*3/uL (0.20-1.00); Monocytes % (A) 7.4 %; NRBC Per 100 WBC 0 X 10*3/uL (0.00-0.01); Neutrophils % (A) 67.5 %; Platelet Count 313 X 10*3/uL (140-440); RBC 4.75 X 10*6/uL (4.40-5.60); RDW 14.1 % (11.5-14.5)
[2024-04-19 10:51] LABS: BUN/Creat Ratio 15.67 Ratio (12.00-20.00); Blood Urea Nitrogen 18.8 mg/dL (9.0-27.0); Calcium 9.8 mg/dL (8.7-10.3); Carbon Dioxide 26.6 mmol/L (21.6-31.8); Chloride 104 mmol/L (96-109); Glucose 126 mg/dL (70-110); Potassium 5.6 mmol/L (3.5-5.5); Sodium 140 mmol/L (135-145)
[2024-04-19 11:14] LABS: Appearance,Urine Clear (Clear); Bilirubin,Urine Negative (Negative); Blood,Urine Negative (Negative); Color,Urine Yellow (Yellow); Ketones,Urine Negative (Negative); Nitrite,Urine Negative (Negative); Specific Gravity,Urine 1.026 (1.001-1.030); Urobilinogen,Urine 0.2 E.U./DL
== END | disposition home or self-care (01) ==
LOC: LABWHC1 07:27
PROVIDERS: ATTEND Urology
DX: Z01.812 Encounter for preprocedural laboratory examination (principal); N52.9 Male erectile dysfunction, unspecified
CPT/HCPCS: 36415; 80048; 81003; 85025; 87086

== ENCOUNTER 2024-04-26 05:47 | Day surgery (SDC) | payer MEDICARE ==
--- NOTE | 2024-04-24 18:21 | P.GSHP ---
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 The patient has failed pde5 inhibitors. He refuses a vacuum pump or vasoactive injections. He wants an IPP The risks and complications have been explained understood and accepted including, lack of satisfaction, pain, injury to adjacent organs, erosion, malfunction or infection with removal and complete impotence among otheres. He comes for this procedure. - Constitutional Constitutional: Denies chills, Denies fever - EENT Eyes: denies blurred vision, denies pain Ears, nose, mouth and throat: Denies headache, Denies sore throat - Cardiovascular Cardiovascular: Denies chest pain, Denies shortness of breath - Respiratory Respiratory: Denies cough, Denies 7 - Gastrointestinal Gastrointestinal: Denies abdominal pain, Denies diarrhea, Denies nausea, Denies vomiting - Genitourinary (Female) Genitourinary: Denies dysuria, Denies hematuria - Genitourinary (Male) Genitourinary: Denies dysuria, Denies hematuria - Musculoskeletal Musculoskeletal: Denies myalgias - Integumentary Integumentary: Denies pruritus, Denies rash - Neurological Neurological: Denies numbness, Denies weakness - Psychiatric Psychiatric: Denies anxiety, Denies depression - Endocrine Endocrine: Denies fatigue, Denies weight change Past Medical History Past Medical History: CVA/TIA, Diabetes Mellitus, GERD/Reflux, Hyperlipidemia, Hypertension, Osteoarthritis (OA) Additional Past Medical History / Comment(s): CVA almost 2 yrs ago with no residual, post CVA pt had daily mild headaches/neck stiffness but eventually became less frequent, NIDDM type II, arthritis especially in bilateral hands, starting of cataracts, frequent urination. History of Any Multi-Drug Resistant Organisms: None Reported Past Surgical History: Orthopedic Surgery, Tonsillectomy Additional Past Surgical History / Comment(s): lori shoulder rotator cuff surgeries with L side done twice, left knee arthroscopy, colonoscopy-normal. Past Anesthesia/Blood Transfusion Reactions: No Reported Reaction Past Psychological History: No Psychological Hx Reported Additional Psychological History / Comment(s): Pt resides with his spouse. He is independent. Past Alcohol Use History: None Reported Past Drug Use History: None Reported - Past Family History Mother Family Medical History: Diabetes Mellitus Additional Family Medical History / Comment(s): Mother at age 83 from a brain tumor with history of diabetes.. Father Family Medical History: CVA/TIA Additional Family Medical History / Comment(s): Father at age 89 from old age. Brother(s) Family Medical History: CVA/TIA Additional Family Medical History / Comment(s): Patient has 2 brothers and one has history of diabetes. Sister(s) Family Medical History: Osteoarthritis (OA) Additional Family Medical History / Comment(s): Patient has 1 sister with no major medical problems. Son(s) Family Medical History: No Reported History Additional Family Medical History / Comment(s): Patient has a total of 4 children: 3 sons and one daughter with no major medical problems. Medications and Allergies Home Medications Medication Instructions Recorded Confirmed Type Pantoprazole Sodium [Protonix] 40 mg PO W/LUNCH 09/27/14 10/11/19 History Quinapril HCl [Accupril] 10 mg PO W/SUPPER 09/27/14 10/11/19 History metFORMIN HCL [Glucophage] 1,000 mg PO BID 09/27/14 10/11/19 History Atorvastatin Calcium [Lipitor] 40 mg PO W/LUNCH 08/25/17 10/11/19 History amLODIPine [Norvasc] 5 mg PO HS 08/25/17 10/11/19 History sitaGLIPtin [Januvia] 100 mg PO W/LUNCH 08/25/17 10/11/19 History Empagliflozin [Jardiance] 25 mg PO DAILY 10/06/19 10/11/19 History Insulin Glargine,Hum.rec.anlog 20 units SQ QAM 10/06/19 10/11/19 History [[place] Solostar] Pioglitazone [Actos] 30 mg PO DAILY 10/06/19 10/11/19 History Aspirin 81 mg PO HS #0 10/12/19 10/11/19 Rx Aspirin 325 mg PO BID #60 tab 10/12/19 Rx Docusate [Colace] 100 mg PO BID #60 capsule 10/12/19 Rx HYDROcodone/APAP 7.5-325MG [[place] 1 - 2 each PO Q6HR PRN #56 tab 10/12/19 Rx 7.5-325] Allergies Allergy/AdvReac Type Severity Reaction Status Date / Time Penicillins AdvReac Itching Verified 10/11/19 13:24 shellfish derived [Shellfish] AdvReac Itching Verified 10/11/19 13:24 Surgical - Exam - General well developed, well nourished, no distress - Eyes normal ocular movement, no icteric - ENT no hearing loss, no congestion - Neck no masses, trachea midline - Respiratory normal respiratory effort, clear to auscultation - Abdomen Abdomen: soft, non tender, no guarding, no rigid, no rebound - Integumentary no rash, no abnormal pigmentation - Neurologic no disoriented, no combative - Psychiatric oriented to time, oriented to person, oriented to place, speech is normal, memory intact Assessment and Plan Assessment: Impression 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
[2024-04-25 10:47] VITALS: BMI 31.9
[~2024-04-26 05:47] MED LIST changes: -HYDROmorphone 0.5 MG/0.5 ML SYRINGE IVP PRN; -LIDOCAINE 1% 20 ML VIAL (10MG/ML) FOR IV START INTRADERMA PRN; -MIDAZOLAM 2 MG/2 ML VIAL IV PRN; -ONDANSETRON 4 MG/2 ML VIAL IVP ONE; +Pre Op ABX Message 1 EACH MISC MISCELLANE ONE; -ROPIVACAINE 246.25 MG, EPINEPHrine 0.5 MG, KETOROLAC 30 MG, cloNIDine HCL/PF 80 MCG, WA... MISCELLANE ONE; -SCOPOLAMINE 1.5MG/72HR PATCH TRANSDERM ONE
[2024-04-26] MEDS ORDERED: LIDOCAINE 1% (10MG/ML) FOR IV START INTRADERMA PRN (06:06)
[2024-04-26] MEDS ORDERED: LACTATED RINGERS 1,000 ML IV SCH (06:06)
[2024-04-26] MEDS: LACTATED RINGERS 1,000 ML IV SCH (06:14)
[2024-04-26 06:40] LABS: Glucose,Whole Blood 133 mg/dL (70-110)
[2024-04-26] MEDS: ONDANSETRON 4 MG/2 ML VIAL IVP PRN (06:54)
[2024-04-26] MEDS: DEXAMETHASONE SOD PHOSPHATE 4 MG/ML 1 ML VIAL IVP ONE (06:54)
[2024-04-26] MEDS ORDERED: HYDROmorphone 0.5 MG/0.5 ML SYRINGE IVP PRN (07:00)
[2024-04-26] MEDS ORDERED: fentaNYL (PF) 50 MCG/ML 2 ML AMP IV PRN (07:00)
[2024-04-26] MEDS: GENTAMICIN 120 MG in SODIUM CHLORIDE 0.9% 100 ML IVPB PRN (07:40)
[2024-04-26] MEDS: GENTAMICIN 80 MG in SODIUM CHLORIDE 0.9% 200 ML IRRIGATION ONE (07:42)
[2024-04-26] MEDS: LACTATED RINGERS 1,000 ML IV ONE (08:28)
--- NOTE | 2024-04-26 08:56 | P.OP ---
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 He has organic impotence. He is failed PDE 5 inhibitors. He declines a vacuum pump and vasoactive injections.he comes for placement of an inflatable penile implant. The risks and complications of an outlined in history and physical. Description of Procedure: the patient is brought to the operating suite. He is given a general anesthetic. He is prepped and draped sterilely. A midline infrapubic incision is made from the base of the penis to just above the pubis. I dissect down the subcutaneous tissue. I expose the corpora cavernosa bilaterally. I place 3-0 PDS stitches in each corpora as stay stitches. I then make an incision in the corpora. I then used Metzenbaum scissors to dilate proximally and distally in each corpora. I then follow the Metzenbaum introduction with Hegar dilators 9- 13. I then measured the length of the implant at 18 cm on the right 19 cm on the left. I will use an 18 cm CX implant without a rear-tip olericulturist on the right and possibly one on the left. I then open the rectus fascia. I developed a space for the reservoir in the prevesical space. I placed the prepared reservoir in the prevesical space and bring the tubing out through the external ring on the right side. I inflate the reservoir to 100 mL and it sits nicely. I then closed the rectus fascia with a running 0 PDS. I then passed each implant into the corpora cavernosa using the Edmundo introducer and a Lupillo needle. Both implants he nicely. I do not need a rear-tip olericulturist on the left side. The proximal end of the corpora on the left was quite tight. I inflate and deflate the implant without buckling. I closed the corporotomies with 3-0 PDS and created a pouch in the right anterior scrotum for the pump. I connected the pump to the reservoir with a straight connector. I again inflate and deflate the implant without buckling or ST deformity. The wound is irrigated thoroughly. I closed the subcutaneous tissue with 3-0 chromic and the skin with a 4-0 Vicryl. Pass a 16-Yi red rubber catheter and the bladder easily with clear urine return. The patient is awakened and returned recovery room good condition. Blood loss is less than 50 mL. He'll be discharged home upon recovery.
[2024-04-26 09:51] VITALS: TEMP 97.2
[2024-04-26] MEDS: HYDROcodone/APAP 7.5-325MG 1 EACH TAB ONE (10:36)
[2024-04-26 11:17] LABS: Glucose,Whole Blood 167 mg/dL (70-110)
[2024-04-26 15:22] VITALS: BP 138/64; PULSE 68; RESP 18
== END 2024-04-26 15:51 | disposition home or self-care (01) ==
LOC: OR 05:47
PROVIDERS: ATTEND Urology
DX: E11.8 Type 2 diabetes mellitus with unspecified complications (principal); N52.9 Male erectile dysfunction, unspecified; K21.9 Gastro-esophageal reflux disease without esophagitis; I10 Essential (primary) hypertension; E78.5 Hyperlipidemia, unspecified; M19.90 Unspecified osteoarthritis, unspecified site; Z79.84 Long term (current) use of oral hypoglycemic drugs; Z86.73 Personal history of transient ischemic attack (TIA), and cerebral infarction without residual deficits; Z88.0 Allergy status to penicillin; Z79.4 Long term (current) use of insulin; Z91.013 Allergy to seafood; Z79.899 Other long term (current) drug therapy
CPT/HCPCS: 84132; 54405; J1580 ×2; J1100; J2405

== ENCOUNTER 2024-04-28 07:57 | Emergency (ER) | payer MEDICARE ==
--- NOTE | 2024-04-28 08:20 | ED ---
General Adult HPI - General Chief complaint: Urogenital Stated complaint: Groin pain Time Seen by Provider: 04/28/24 08:09 Source: patient, family, RN notes reviewed Mode of arrival: ambulatory Limitations: no limitations - History of Present Illness Initial comments: Patient is a 73-year-old male present to the emergency department with concerns with groin pain. Patient is postop approximately 3 days. Patient states he had a pump installed. Patient complains of discomfort and swelling. Patient states discomfort is greatly increased with movement. - Related Data Home Medications Medication Instructions Recorded Confirmed Pantoprazole Sodium [Protonix] 40 mg PO QAM 09/27/14 04/26/24 Quinapril HCl [Accupril] 10 mg PO QAM 09/27/14 04/26/24 metFORMIN HCL [Glucophage] 1,000 mg PO BID 09/27/14 04/26/24 Atorvastatin Calcium [Lipitor] 40 mg PO W/LUNCH 08/25/17 04/26/24 amLODIPine [Norvasc] 5 mg PO QAM 08/25/17 04/26/24 sitaGLIPtin [Januvia] 100 mg PO QAM 08/25/17 04/26/24 Pioglitazone [Actos] 30 mg PO DAILY 10/06/19 04/26/24 Aspirin 81 mg PO QAM 04/25/24 04/26/24 Dapagliflozin Propanediol [Farxiga] 10 mg PO QAM 04/25/24 04/26/24 Insulin Glargine/Lixisenatide 32 units SQ QAM 04/25/24 04/26/24 [[place] 100 Unit-33 Mcg/ml Pen] lisinopriL [Zestril] 10 mg PO QAM 04/25/24 04/26/24 Previous Rx's Medication Instructions Recorded Docusate [Colace] 100 mg PO BID #60 capsule 10/12/19 HYDROcodone/APAP 7.5-325MG [[place] 1 - 2 each PO Q6HR PRN #56 tab 10/12/19 7.5-325] HYDROcodone/APAP 5-325MG [[place] 1 tab PO Q4HR PRN #14 tab 04/26/24 5-325] Allergies Allergy/AdvReac Type Severity Reaction Status Date / Time Penicillins AdvReac Itching Verified 04/28/24 08:07 shellfish derived [Shellfish] AdvReac Itching Verified 04/28/24 08:07 Review of Systems ROS Statement: Those systems with pertinent positive or pertinent negative responses have been documented in the HPI. ROS Other: All systems not noted in ROS Statement are negative. Constitutional: Denies: fever Eyes: Denies: eye pain ENT: Denies: ear pain Respiratory: Denies: cough, dyspnea Cardiovascular: Denies: chest pain Gastrointestinal: Denies: abdominal pain Genitourinary: Reports: as per HPI Past Medical History Past Medical History: CVA/TIA, Diabetes Mellitus, GERD/Reflux, Hyperlipidemia, Hypertension, Osteoarthritis (OA) Additional Past Medical History / Comment(s): CVA almost 2 yrs ago with no residual, post CVA pt had daily mild headaches/neck stiffness but eventually became less frequent, NIDDM type II, arthritis especially in bilateral hands, starting of cataracts, frequent urination. History of Any Multi-Drug Resistant Organisms: None Reported Past Surgical History: Orthopedic Surgery, Tonsillectomy Additional Past Surgical History / Comment(s): lori shoulder rotator cuff surgeries with L side done twice, left knee arthroscopy, colonoscopy-normal. Past Anesthesia/Blood Transfusion Reactions: No Reported Reaction Past Psychological History: No Psychological Hx Reported Past Alcohol Use History: Occasional Past Drug Use History: None Reported - Past Family History Mother Family Medical History: Diabetes Mellitus Father Family Medical History: CVA/TIA Brother(s) Family Medical History: CVA/TIA, Diabetes Mellitus Sister(s) Family Medical History: Osteoarthritis (OA) Son(s) Family Medical History: No Reported History General Exam Limitations: no limitations General appearance: alert, in no apparent distress Head exam: Present: normocephalic Eye exam: Present: normal appearance Neck exam: Present: normal inspection Respiratory exam: Present: normal lung sounds bilaterally Cardiovascular Exam: Present: regular rate, normal rhythm GI/Abdominal exam: Present: soft, normal bowel sounds. Absent: distended, tenderness, guarding, rebound, rigid, pulsatile mass exam: Present: other (Patient does have some swelling and tenderness of the proximal penis with mild ecchymosis. There is some mild swelling extending slightly to the proximal region. There is also some tenderness of the testicles. No significant testicular swelling) Extremities exam: Present: normal inspection Neurological exam: Present: alert Psychiatric exam: Present: normal affect, normal mood Skin exam: Present: other (Mild ecchymosis of the proximal penis and testicle region) Course Vital Signs 04/28/24 08:04 Temperature 98 F Pulse Rate 58 L Respiratory 18 Rate Blood Pressure 161/78 O2 Sat by Pulse 100 Oximetry Medical Decision Making - Medical Decision Making Was pt. sent in by a medical professional or institution (, [facility], [employer], urgent care, hospital, or half-way...) When possible be specific @ -No Did you speak to anyone other than the patient for history (EMS, parent, family, police, friend...)? What history was obtained from this source @ -No Did you review nursing and triage notes (agree or disagree)? Why? @ -I reviewed and agree with nursing and triage notes Were old charts reviewed (outside hosp., previous admission, EMS record, old EKG, old radiological studies, urgent care reports/EKG's, half-way records)? Report findings @ -No old charts were reviewed Differential Diagnosis (chest pain, altered mental status, abdominal pain women, abdominal pain men, vaginal bleeding, weakness, fever, dyspnea, syncope, headache, dizziness, GI bleed, back pain, seizure, CVA, palpatations, mental health, musculoskeletal)? @ -Differential Abdominal Pain Men: Appendicitis, cholecystitis, diverticulosis, ischemic bowel, pancreatitis, hepatitis, UTI, gastroenteritis, AAA, incarcerated hernia, bowel obstruction, constipation, inflammatory bowel, hepatitis, peptic ulcer disease, splenic infarction, perforated viscus, testicular torsion, this is not meant to be an all-inclusive list EKG interpreted by me (3pts min.). @ -As above X-rays interpreted by me (1pt min.). @ -None done CT interpreted by me (1pt min.). @ -None done U/S interpreted by me (1pt. min.). @ -None done What testing was considered but not performed or refused? (CT, X-rays, U/S, labs)? Why? @ -Considered imaging however advised against it per Dr. Ordaz What meds were considered but not given or refused? Why? @ -None Did you discuss the management of the patient with other professionals (professionals i.e. , [facility], [employer], lab, RT, psych nurse, social media content specialist, assistant professor of theater, teacher, state highway police officer, rn case manager)? Give summary @ -Case was discussed with Dr. Ordaz. He states no further imaging or diagnostic tests needed. He states patient can follow-up in the office. Was smoking cessation discussed for >3mins.? @ -No Was critical care preformed (if so, how long)? @ -No Were there social determinants of health that impacted care today? How? (Homelessness, low income, unemployed, alcoholism, drug addiction, transportation, low edu. Level, literacy, decrease access to med. care, [facility], rehab)? @ -No Was there de-escalation of care discussed even if they declined (Discuss DNR or withdrawal of care, Hospice)? DNR status @ -No What co-morbidities impacted this encounter? (DM, HTN, Smoking, COPD, CAD, Cancer, CVA, ARF, Chemo, Hep., AIDS, mental health diagnosis, sleep apnea, morbid obesity)? @ -None Was patient admitted / discharged? Hospital course, mention meds given and route, prescriptions, significant lab abnormalities, going to OR and other pertinent info. @ -Patient updated on recommendations. Patient is advised to call today for urology. Patient advised to return if symptoms worsen Undiagnosed new problem with uncertain prognosis? @ -No Drug Therapy requiring intensive monitoring for toxicity (Heparin, Nitro, Insulin, Cardizem)? @ -No Were any procedures done? @ -No Diagnosis/symptom? @ -Postoperative pain Acute, or Chronic, or Acute on Chronic? @ -Acute Uncomplicated (without systemic symptoms) or Complicated (systemic symptoms)? @ -Default Side effects of treatment? @ -No Exacerbation, Progression, or Severe Exacerbation? @ -No Poses a threat to life or bodily function? How? (Chest pain, [place], [place], pneumonia, PE, COPD, DKA, ARF, appy, cholecystitis, CVA, Diverticulitis, Homicidal, Suicidal, threat to staff... and all critical care pts) @ -No Disposition Clinical Impression: Postoperative pain Disposition: HOME SELF-CARE Condition: Stable Instructions (If sedation given, give patient instructions): Pain Management (ED), Pain Management After Surgery (DC) Additional Instructions: Please do follow-up with your urologist today or tomorrow. Please call today. Return for fever, difficulty with urination, increased pain or swelling, worsening symptoms or other concerns. Is patient prescribed a controlled substance at d/c from ED?: No Referrals: Ortiz Quiles DO [Primary Care Provider] - 1-2 days Alexi Ruvalcaba MD [STAFF PHYSICIAN] - 1-2 days Time of Disposition: 09:09
[2024-04-28] MEDS: HYDROcodone/APAP 7.5-325MG 1 EACH TAB PO ONE (09:27)
[2024-04-28 09:42] VITALS: BP 159/85; PULSE 60; RESP 17; TEMP 97.9
== END 2024-04-28 09:33 | disposition home or self-care (01) ==
LOC: EC 07:57
DX: G89.18 Other acute postprocedural pain (principal); Z88.0 Allergy status to penicillin; Z91.013 Allergy to seafood; Z86.73 Personal history of transient ischemic attack (TIA), and cerebral infarction without residual deficits
CPT/HCPCS: 99283

== ENCOUNTER → 2024-11-14 | Outpatient (CLI) | payer MEDICARE ==
--- NOTE | 2024-11-14 14:54 | XR ---
EXAMINATION TYPE: XR knee complete bilateral DATE OF EXAM: 11/14/2024 2:49 PM INDICATION: Patient age:Male; 74 years old; Reason for study: M25.561 PAIN IN RIGHT KNEE M25.562 PAIN IN LEFT KN; [facility]. COMPARISON: Left knee radiograph 10/11/2019 TECHNIQUE: Both knees were examined in frontal, lateral and oblique projections. 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 Hardware appears intact with appro priate alignment. Tricompartmental joint space narrowing with marginal osteophytosis of the right kne e. No knee joint effusions identified. No significant soft tissue swelling. Bilateral vascular sclero sis. IMPRESSION: 1. No acute osseous pathology. 2. Mild tricompartmental osteoarthritic changes of the right knee. 3. Postsurgical changes from left total knee arthroplasty. Hardware appears intact with appropriate a lignment. [facility], , 11/14/2024 2:52 PM
== END | disposition home or self-care (01) ==
LOC: RADXRMAIN 14:27
PROVIDERS: ATTEND Family Medicine
DX: M17.11 Unilateral primary osteoarthritis, right knee (principal); Z96.652 Presence of left artificial knee joint

== ENCOUNTER → 2025-01-30 | Outpatient (CLI) | payer MEDICARE ==
[2025-01-30 11:52] LABS: ALT 15 U/L (10-49); AST 17 U/L (14-35); Albumin 4.1 g/dL (3.8-4.9); Albumin/Globulin Ratio 1.58 Ratio (1.60-3.17); Alkaline Phosphatase 75 U/L (41-126); BUN/Creat Ratio 15.15 Ratio (12.00-20.00); Blood Urea Nitrogen 19.7 mg/dL (9.0-27.0); Calcium 9.6 mg/dL (8.7-10.3); Carbon Dioxide 27.3 mmol/L (21.6-31.8); Chloride 102 mmol/L (96-109); Chol/HDL Ratio 3.38 Ratio; Globulin 2.6 g/dL (1.6-3.3); Glucose 94 mg/dL (70-110); LDL Cholesterol,Calculated 80.6 mg/dL (0.0-131.0); Potassium 4.2 mmol/L (3.5-5.5); Sodium 141 mmol/L (135-145); Total Bilirubin 0.3 mg/dL (0.3-1.2); Total Protein 6.7 g/dL (6.2-8.2); VLDL Calculation 14.52 mg/dL (5.00-40.00)
[2025-01-30 12:39] LABS: Microalbumin Creatinine Ratio <9 mg/g Cr (0-30)
== END | disposition home or self-care (01) ==
LOC: LABWHC1 07:38
PROVIDERS: ATTEND Internal Medicine
DX: E11.65 Type 2 diabetes mellitus with hyperglycemia (principal); Z79.4 Long term (current) use of insulin; E55.9 Vitamin D deficiency, unspecified
CPT/HCPCS: 36415; 80053; 80061; 82043; 82306; 82570; 83036

== ENCOUNTER → 2025-06-20 | Outpatient (CLI) | payer MEDICARE ==
[2025-06-20 16:01] LABS: Anion Gap 13.10 mmol/L (4.00-12.00); BUN/Creat Ratio 18.08 Ratio (12.00-20.00); Blood Urea Nitrogen 21.7 mg/dL (9.0-27.0); Calcium 9.6 mg/dL (8.7-10.3); Carbon Dioxide 23.9 mmol/L (21.6-31.8); Chloride 105 mmol/L (96-109); Glucose 76 mg/dL (70-110); Potassium 4.9 mmol/L (3.5-5.5); Sodium 142 mmol/L (135-145)
== END | disposition home or self-care (01) ==
LOC: LABWHC1 08:02
PROVIDERS: ATTEND Nurse Practitioner Gerontology
DX: E11.65 Type 2 diabetes mellitus with hyperglycemia (principal); Z79.4 Long term (current) use of insulin
CPT/HCPCS: 36415; 80048; 83036

== ENCOUNTER → 2025-06-21 | Outpatient (CLI) | payer MEDICARE ==
--- NOTE | 2025-06-22 00:22 | US ---
EXAMINATION TYPE: US Aorta Screening DATE OF EXAM: 06/21/2025 COMPARISON: NONE CLINICAL INDICATION: Male, 75 years old with history of Z13.6 ENCTR SCRN CARDIOVASCULAR DISORD; scree patito, no symptoms and no family history TECHNIQUE: Multiple sonographic images of the abdominal aorta are obtained with grayscale and color D oppler imaging. FINDINGS: EXAM MEASUREMENTS: Abdominal Aorta: Proximal: gassed out Mid: 1.8 x 2.0cm Distal: 1.4 x 1.3cm Bifurcation: gassed out NEURODIAGNOSTIC TECHNICIAN NOTES: Bowel gas limits exam, no obvious AAA at this time IMPRESSION: No evidence for aortic aneurysm. No further workup recommended for negative screening aortic aneurysm ultrasound per Society of Vascular Surgery Recommendations. [email or web address] [facility], , 06/22/2025 12:20 AM
== END | disposition home or self-care (01) ==
LOC: RADUSWWP 08:34
PROVIDERS: ATTEND Family Medicine
DX: Z13.6 Encounter for screening for cardiovascular disorders (principal)
CPT/HCPCS: 76706